=== PATIENT | male | born 1955 | race Caucasian/White ===

== ENCOUNTER → 2018-11-21 | Outpatient (CLI) | payer MEDICARE, OTHER | LOC: MHCPAIN 15:10 | DX: G89.29 Other chronic pain (principal); M47.817 Spondylosis without myelopathy or radiculopathy, lumbosacral region; M54.16 Radiculopathy, lumbar region; M53.3 Sacrococcygeal disorders, not elsewhere classified; M48.061 Spinal stenosis, lumbar region without neurogenic claudication | CPT/HCPCS: G0463 ==

== ENCOUNTER 2020-04-18 06:16 | Outpatient (CLI) | payer MEDICARE, OTHER ==
[2020-04-18] VITALS (24 sets, daily range): BP systolic 104–143; BP diastolic 52–78; PULSE 66–86; TEMP 97.9
[2020-04-18 07:32] LABS: HEMATOCRIT 40.4 % (42.0-52.0); HEMOGLOBIN 13.9 g/dl (13.5-18.0); MEAN CELL VOLUME 96 fl (80.0-100.0); MEAN CORPUSCULAR HEMOGLOBIN 33 pg (27.0-31.0); MEAN CORPUSCULAR HGB CONC 34 g/dl (33.0-37.0); MEAN PLATELET VOLUME 8.7 fl (7.4-10.4); PLATELET COUNT 166 K/mm3 (130-400); RED BLOOD COUNT 4.21 M/mm3 (4.20-5.60); REDCELL DISTRIBUTION WIDTH-CV 14.4 % (11.5-14.5)
[2020-04-18 07:50] LABS: INR 1.1 (0.8-3.0); PROTHROMBIN TIME 12.6 SECONDS (9.7-12.8)
[2020-04-18] MEDS ORDERED: ZESTRIL 5MG5 MG PO (07:50)
[2020-04-18] MEDS ORDERED: PRANDIN PO (07:51)
[2020-04-18] MEDS ORDERED: DESYREL 50MG50 MG PO (07:51)
[2020-04-18 07:53] LABS: PARTIAL THROMBOPLASTIN TIME 34.6 SECONDS (26.0-37.0)
[2020-04-18] MEDS ORDERED: LIORESAL 1010 MG/TAB PO (07:53)
[2020-04-18] MEDS ORDERED: TRIAMCINOLONE A15 G3 TP (07:54)
[2020-04-18] MEDS ORDERED: AMARYL 2MG T2 MG/TAB PO (07:54)
[2020-04-18] MEDS ORDERED: LIPITOR20 MG PO (07:56)
[2020-04-18] MEDS ORDERED: ASPIRIN 81M81 MG/TA2 PO (07:56)
[2020-04-18] MEDS ORDERED: NOVOLOG 100U100 U/M1 SQ (07:59)
--- NOTE | 2020-04-18 08:00 | NUR ---
pt to ct per bed. Pt up and onto ct table in prone position. Monitors applied and O2 on at 2l/nc.
[2020-04-18] MEDS ORDERED: HYGROTON 2525 MG/TAB PO (08:04)
[2020-04-18] MEDS ORDERED: LEVEMIR FLEX100 U/ML SQ (08:09)
[2020-04-18] MEDS ORDERED: ULTRAM 50MG TAB50 MG PO (08:09)
--- NOTE | 2020-04-18 08:09 | NUR ---
Dr Trejo into room to talk with pt.
[2020-04-18] MEDS ORDERED: COREG 3.123.125 MG/T PO (08:10)
--- NOTE | 2020-04-18 08:15 | NUR ---
Pt reports shooting pain to right hip at intervals. Specimens obtained and placed in saline in baldemar dish and taken to Dr Lopez pathologist.
--- NOTE | 2020-04-18 15:21 | NUR ---
Discharge instructions given to pt.Pt verbalizes understanding.INT removed,catheter tip intact.Pt escorted out via wheelchair by this nurse.
== END 2020-04-18 15:24 | disposition home or self-care (01) ==
LOC: COL.RAD 06:16
PROVIDERS: Internal Medicine Nephrology
DX: N17.9 Acute kidney failure, unspecified (principal)
CPT/HCPCS: 32109

== ENCOUNTER → 2023-02-26 | Outpatient (CLI) | payer OTHER, MEDICARE ==
[~2023-02-26] MED LIST: ALDACTONE 100M100 MG PO; AMARYL 2MG T2 MG/TAB PO; AMOXICILLIN 8751 TAB PO; ASPIRIN 81M81 MG/TA2 PO; ATARAX 25MG25 MG/TAB PO; COREG 3.123.125 MG/T PO; DESYREL 50MG50 MG PO; DIFLUCAN200 MG PO; ENULOSE10 GM/151 PO; HYGROTON 2525 MG/TAB PO; LACTULOSE10 GM/153 PO; LANTUS SOLOS100 U/ML SQ; LASIX 20MG TABL20 MG PO; LASIX 40MG TABL40 MG PO; LEVAQUIN 750MG750 M1 PO; LEVEMIR FLEX100 U/ML SQ; LIDODERM 5% PATC1 EA TP; LIORESAL 1010 MG/TAB PO; LIPITOR20 MG PO; MIRTAZAPINE7.5 MG PO; NOVOLOG 100U100 U/M1 SQ; NOVOLOG FLEX100 U/ML SQ; PRANDIN PO; PROTONIX 40MG T40 MG PO; ROBAXIN 50500 MG/TAB PO; SODIUM CHLORIDE; TRIAMCINOLONE A15 G3 TP; TYLENOL 500MG500 MG PO; ULTRAM 50MG TAB50 MG PO; VANCOCIN H125 MG/CAP PO; ZESTRIL 5MG5 MG PO; ZYRTEC 10MG10 MG PO
== END ==
LOC: COL.LAB 12:46
DX: K74.60 Unspecified cirrhosis of liver (principal); E11.22 Type 2 diabetes mellitus with diabetic chronic kidney disease; N18.30 Chronic kidney disease, stage 3 unspecified; R74.8 Abnormal levels of other serum enzymes; E72.20 Disorder of urea cycle metabolism, unspecified

== ENCOUNTER 2023-04-26 11:15 | Outpatient (RCR) | payer OTHER, MEDICARE ==
[~2023-04-26 11:15] MED LIST changes: +AFRIN 15 ML15 ML NS; -SODIUM CHLORIDE; -TYLENOL 500MG500 MG PO; +TYLENOL 8 HR PO
== END 2023-05-15 | disposition home or self-care (01) ==
LOC: MKS.ESL.PT
DX: G72.81 Critical illness myopathy (principal); N18.30 Chronic kidney disease, stage 3 unspecified; K74.60 Unspecified cirrhosis of liver; I48.91 Unspecified atrial fibrillation; R13.12 Dysphagia, oropharyngeal phase

== ENCOUNTER 2023-05-18 08:04 | Outpatient (RCR) | payer OTHER, MEDICARE ==
[2023-05-24] MEDS ORDERED: ELIQUIS 5MG PO (08:20)
[2023-05-24] MEDS ORDERED: PRINIVIL5 MG PO (08:21)
[2023-05-24] MEDS ORDERED: B COMPLEX #11 TA1 PO (08:26)
[2023-05-24] MEDS ORDERED: XIFAXAN550 MG PO (08:26)
[2023-05-24] MEDS ORDERED: VITAMIN D362.5 MC1 PO (08:27)
[2023-05-24] MEDS ORDERED: VITAMIN D 50,1.25 MG PO (08:28)
[2023-05-27] MEDS ORDERED: ENULOSE10 GM/151 PO (13:46)
[2023-06-10] MEDS ORDERED: PROAMATINE 5MG T5 MG PO (09:47)
[2023-06-10] MEDS ORDERED: PROTONIX 40MG T40 MG PO (09:49)
[2023-06-10] MEDS ORDERED: LASIX 40MG TABL40 MG PO (11:50)
== END 2023-06-09 14:39 ==
LOC: MKS.ESL.PT 08:04
DX: G72.81 Critical illness myopathy (principal); N18.30 Chronic kidney disease, stage 3 unspecified; K74.60 Unspecified cirrhosis of liver; I48.91 Unspecified atrial fibrillation; R13.12 Dysphagia, oropharyngeal phase

== ENCOUNTER 2023-05-23 12:56 | Inpatient (IN) | payer OTHER, MEDICARE ==
[~2023-05-23] VITALS: Ht 188 cm; Wt 113.3 kg
[2023-05-23 13:57] LABS: BASO % 0.5 % (0.0-2.0); EOS # 0.2 K/mm3 (0.0-0.7); EOS % 2.3 % (0.0-4.0); GRAN # 5.9 K/mm3 (1.4-6.5); GRAN % 70.4 % (42.2-75.2); LYMPH # 1.2 K/mm3 (1.2-3.4); LYMPH % 14.6 % (20.0-51.0); MEAN CELL VOLUME 103 fl (80.0-100.0); MEAN CORPUSCULAR HGB CONC 36 g/dl (33.0-37.0); MEAN PLATELET VOLUME 8.7 fl (7.4-10.4); MONO % 11.8 % (1.7-9.3); PLATELET COUNT 189 K/mm3 (130-400); RED BLOOD COUNT 2.57 M/mm3 (4.20-5.60); REDCELL DISTRIBUTION WIDTH-CV 16.3 % (11.5-14.5)
[2023-05-23 13:58] LABS: HEMATOCRIT 26.5 % (42.0-52.0); HEMOGLOBIN 9.4 g/dl (13.5-18.0); MEAN CORPUSCULAR HEMOGLOBIN 37 pg (27-31)
[2023-05-23 14:08] LABS: LACTIC ACID 1.7 mmol/L (0.5-2.0)
[2023-05-23 14:11] LABS: COLLECTION METHOD CLEAN CATCH
[2023-05-23 14:12] LABS: ALANINE AMINOTRANSFERASE 30 U/L (0-55); ALBUMIN 2.3 gm/dL (3.4-4.8); ALKALINE PHOSPHATASE 161 U/L (40-150); ANION GAP 12 mmol/L (7-16); AST,SGOT 50 U/L (5-34); BLOOD UREA NITROGEN 65 mg/dL (8-26); C-REACTIVE PROTEIN 12.68 mg/dL (0.00-0.50); CALCIUM 10.6 mg/dL (8.4-10.2); CARBON DIOXIDE 18 mmol/L (23-31); CHLORIDE 105 mmol/L (98-107); GLUCOSE 189 mg/dL (70-99); POTASSIUM 4.7 mmol/L (3.5-4.5); SODIUM 135 mmol/L (136-145); TOTAL PROTEIN 8.7 gm/dL (6.2-8.1)
[2023-05-23 14:19] LABS: TROPONIN-I < 0.010 ng/mL (0.00-0.033)
[2023-05-23 14:20] LABS: BILIRUBIN,TOTAL 1.7 mg/dL (0.2-1.2)
[2023-05-23 14:36] LABS: PH 5.5 (5.0-8.5); SQUAMOUS EPITHELIAL 0-2 /hpf (0-10); URINE APPEARANCE Clear (CLEAR/HAZY); URINE BACTERIA Rare /hpf (NONE SEEN); URINE BLOOD Negative (NEGATIVE); URINE COLOR Yellow (YELLOW); URINE GLUCOSE Negative (NEGATIVE); URINE KETONE Negative (NEGATIVE); URINE NITRATE Negative (NEGATIVE); URINE PROTEIN(semi-quant) Negative (NEGATIVE); URINE RBC 0-2 /hpf (0-2); URINE UROBILINOGEN 0.2 E.U/dL (0.2-1.0)
[2023-05-23] MEDS ORDERED: NS 1,000 ML IV ONE (15:00)
[2023-05-23] MEDS ORDERED: Ondansetron 4 MG/2 ML VIAL IV PRN (16:15)
[2023-05-23] MEDS ORDERED: Acetaminophen 500 MG TAB PO PRN (16:15)
[2023-05-23] MEDS ORDERED: traMADol 50 MG TAB PO ONE (16:19)
[2023-05-23] MEDS ORDERED: Acetaminophen 325 MG TAB PO ONE (16:20)
[2023-05-23] MEDS ORDERED: NS 1,000 ML IV SCH (16:30)
[2023-05-23] MEDS ORDERED: traMADol 50 MG TAB PO PRN (17:00)
[2023-05-23] MEDS ORDERED: Methocarbamol 500 MG TAB PO PRN (17:00)
--- NOTE | 2023-05-23 17:45 | NUR ---
PT ON THE FLOOR WITH PERSONAL BELONGINGS. PT TRANSFERRED TO BED WITH 2 ASSIST. PT CHANGED INTO FALL RISK ITEMS AND ORIENTED TO ROOM. PT ON THE FLOOR WITH FLUIDS RUNNING IN RIGHT UPPER ARM IV AT 125 MLS/HR, RATE CHANGED PER ORDER. PT DENIES RECENT FALL AND HAS PERSONAL WALKER IN ROOM. PT HAS DEXCOM TO LEFT UPPER ARM. PT GIVEN A WARM BLANKET AND DINNER ORDERED. PT HAS AN INCISION FROM PREVIOUS SURGERY TO LEFT UPPER ABDOMEN. SITE COVERED WITH GAUZE AND TAPE. REDNESS SURROUNDING AND NO DRAINAGE NOTED. PT DENIES NEEDS AT THIS TIME. MED REC DONE PER FLORA IN ED. BED IN LOWEST POSITION, CALL LIGHT IN REACH, BED ALARM ON
[2023-05-23 17:48] VITALS: BP 123/72; PULSE 71; TEMP 97.8
[2023-05-23 18:25] VITALS: BP_SYST 123
--- NOTE | 2023-05-23 19:14 | NUR ---
REPORT GIVEN TO TERESSA DOOLEY
[2023-05-23] MEDS ORDERED: Glucagon 1 MG VIAL IM PRN (19:15)
[2023-05-23] MEDS ORDERED: Dextrose (Glucose) 15 GM (4 x 3.75 GM) Chewable TABLET PACK PO PRN (19:15)
[2023-05-23] MEDS ORDERED: Dextrose 50% Water 25 GM/50 ML SYRINGE IV PRN (19:15)
[2023-05-23 19:32] VITALS: BP 101/54; PULSE 70; TEMP 97.3
[2023-05-23 20:15] VITALS: BP_SYST 107
[2023-05-23] MEDS ORDERED: Baclofen 10 MG TAB PO SCH (21:00)
[2023-05-23] MEDS ORDERED: Insulin Aspart (NovoLOG) SQ SCH (21:00)
[2023-05-23 23:03] VITALS: BP 107/66; PULSE 77; TEMP 97.7
[2023-05-24] VITALS (13 sets, daily range): BP systolic 101–131; BP diastolic 57–96; PULSE 77–195; TEMP 97.4–98.1
[2023-05-24] MEDS ORDERED: Heparin 5,000 UNITS/ML 1 ML VIAL SQ SCH
--- NOTE | 2023-05-24 00:32 | NUR ---
patient lying in bed, alert and oriented x4. pt denies chest pain and shortness of breath. IV in LF is patent, site is clean dry and intact with NS running at 100 ml/hr. right upper abd icision with guaze dressing is clean, dry and intact, excom on DEBRA, soft pouch on bottom of spine (pt reported due to spina bifida), generalized bruising on extremities and abd noted. pt has no further needs, questions or concerns at this time. fall precautions in place, call light within reach. will continue to monitor.
--- NOTE | 2023-05-24 06:45 | NUR ---
PATIENT SITTING UP AT EDGE OF BED DURING BEDSIDE REPORT. THIS NURSE AND WELDER/FITTER NURSE ASSISTED PATIENT TO CHAIR. PATIENT IS ALERT, ORIENTED X3 AT THIS TIME. PATIENT WAS INCONTINENT AND NEEDED QUEUING. PATIENT NOW SITTING UP IN RECLINER. FALL PREC IN PLACE. CALL LIGHT WITHIN REACH.
[2023-05-24] MEDS ORDERED: ELIQUIS 5MG PO (08:20)
[2023-05-24] MEDS ORDERED: PRINIVIL5 MG PO (08:21)
[2023-05-24] MEDS ORDERED: XIFAXAN550 MG PO (08:26)
[2023-05-24] MEDS ORDERED: B COMPLEX #11 TA1 PO (08:26)
[2023-05-24] MEDS ORDERED: VITAMIN D362.5 MC1 PO (08:27)
[2023-05-24] MEDS ORDERED: VITAMIN D 50,1.25 MG PO (08:28)
[2023-05-24] MEDS ORDERED: Lactulose Oral Soln 10 GM/15 ML CUP PO SCH ×3 (09:00→21:00)
--- NOTE | 2023-05-24 09:14 | NUR ---
THIS NURSE WAS NOTIFIED BY CHARGE NURSE THAT PATIENT WAS ON THE FLOOR. THE PATIENT APPEARED TO HAVE SLID OUT OF THE RECLINER. PATIENT IS ALERT, BUT NOT ORIENTED. NO INJURIES NOTED TO PATIENT. VSS. CHAIR ALARM ON. FALL PREC IN PLACE. WILL CONT TO MONITOR FOR CHANGES.
--- NOTE | 2023-05-24 09:42 | NUR ---
DR ALMAGUER NOTIFIED OF PATIENT'S FALL. SEE NEW ORDERS.
--- NOTE | 2023-05-24 11:03 | NUR ---
PATIENT DOWN TO CT VIA BED. PATIENT IS ALERT, BUT NOT ORIENTED.
[2023-05-24] MEDS ORDERED: Miconazole 2% Topical Powder BOTTLE TP SCH (11:09)
--- NOTE | 2023-05-24 11:16 | NUR ---
PATIENT BACK FROM CT.
[2023-05-24 13:19] LABS: BASO % 0.5 % (0.0-2.0); EOS # 0.1 K/mm3 (0.0-0.7); EOS % 1.1 % (0.0-4.0); GRAN # 5.1 K/mm3 (1.4-6.5); GRAN % 76.5 % (42.2-75.2); LYMPH # 0.7 K/mm3 (1.2-3.4); LYMPH % 11.2 % (20.0-51.0); MEAN CELL VOLUME 103 fl (80.0-100.0); MEAN CORPUSCULAR HGB CONC 35 g/dl (33.0-37.0); MEAN PLATELET VOLUME 8.8 fl (7.4-10.4); MONO # 0.7 K/mm3 (0.1-0.6); MONO % 10.4 % (1.7-9.3); PLATELET COUNT 169 K/mm3 (130-400); RED BLOOD COUNT 2.53 M/mm3 (4.20-5.60); REDCELL DISTRIBUTION WIDTH-CV 15.9 % (11.5-14.5)
[2023-05-24 13:26] LABS: MEAN CORPUSCULAR HEMOGLOBIN 36 pg (27-31)
[2023-05-24 13:32] LABS: CALCIUM 10.4 mg/dL (8.4-10.2); CREATININE, serum 2.13 mg/dL (0.72-1.25); POTASSIUM 4.6 mmol/L (3.5-4.5)
--- NOTE | 2023-05-24 16:46 | NUR ---
THIS NURSE ASSISTED PCT WITH BED CHANGE. PATIENT HAS BEEN INCONTINENT ALL SHIFT. ON THE TESTES, THERE IS A RED, BOIL-LIKE SKIN DEFECT; WITH YELLOWISH DISCHARGE NOTED. THIS NURSE CHANGED DRSG TO RIGHT UPPER QUADRANT. YELLOWISH DRAINAGE NOTED. COVERED WITH GAUZE AND MICROFOAM TAPE. PATIENT GRIMACED DURING CLEANING OF INCISION. WILL CONT TO MONITOR.
[2023-05-24 16:58] LABS: INR 1.3 (0.8-3.0); PROTHROMBIN TIME 13.9 SECONDS (9.7-12.8)
[2023-05-24 17:00] LABS: ARTERIAL BLD GAS O2 SATURATION 95.6 % (92-100); ARTERIAL BLD GAS TCO2 CT 20.6; ARTERIAL BLOOD GAS BASE EXCESS -2.9 (-2-2); ARTERIAL BLOOD GAS HCO3 19.7 meq/L (22-26); ARTERIAL BLOOD GAS pH 7.48 (7.35-7.45)
--- NOTE | 2023-05-24 18:03 | NUR ---
molding utility worker attempted to meet with patient but he fell asleep shortly after patient entered room. RUSS was notified it is possible patient may transfer to another facility. RUSS contacted patient's next of kin, , Shawnee, P# [phone]. Shawnee was able to confirm they live in [place]. PCP is Maria Fernanda Ayala at [facility] P# [phone] and he also gets his prescriptions there but for immediate needs he can get medications at [facility] in [place]. Shawnee reports patient is . Patient does not currently have a DPOA-HC but is interested in completing one once he is feeling better. DME is CPAP, walker and wheelchair. Shawnee reports patient has needed more assistance the last few weeks with ADLS. Shawnee is able to transport to appointments. Shawnee expressed she had received a call that patient may be transferring to [facility] if there is availability. Shawnee expressed she does not feel he would be able to return home without some form of rehab first. Shawnee expressed they have been to the Rehab center in [place] and would like him to go there once medically cleared. Discharge plan: TBD
--- NOTE | 2023-05-24 18:18 | NUR ---
PATIENT RESTING IN BED. PATIENT IS ASLEEP, BUT EASY TO AROUSE. PATIENT CONTINUES TO FALL ASLEEP SHORTLY AFTER AWAKENING. AMS. NS RUNNING @ 100ML/HR. PATIENT HAS BEEN INCONINENT ALL SHIFT. ANTIFUNGAL POWDER APPLIED AFTER EACH INC EPISODE. NO BOWEL MOVEMENT THIS SHIFT. FALL PREC IN PLACE. BED ALARM ON.
[2023-05-24] MEDS ORDERED: Apixaban 5 MG TAB PO SCH (21:00)
--- NOTE | 2023-05-24 22:13 | NUR ---
patient lying in bed alert and oriented x3 with intermittent confusion/forgetfullness and a delayed response time. pt denies chest pain adn shortness of breath. IV in FELIX is patent, site clean dry and intact with NS running at 100 ml/hr. RUQ incision dressed with gauze changed by NETWORK MANAGER during day shift, clean dry and intact. redness to groin, sacrum , left scrotom, under bilateral breast tissue, and under lower belly, desenex powder applied. generalized scattered bruising on extremities, soft fist sized pouch on lower back noted. pt able to have a moderate sized loose stool upon shift change, up to bedside commode x2 assist. pt has no further needs, questions or concerns. fall precautions in place, call light within reach. will continue to monitor.
[2023-05-25] VITALS (12 sets, daily range): BP systolic 100–148; BP diastolic 5–77; PULSE 73–87; TEMP 97.8–98.2
--- NOTE | 2023-05-25 08:30 | NUR ---
Patient awake, alert and oriented. C/O mild back pain, chronic. Denies shortness of breath or nausea. Telemetry in place, IVF running, on room air. Tolerated breakfast well. Denies further needs at this time. Bed in lowest position with call light within reach.
[2023-05-25] MEDS ORDERED: Lidocaine 4% Topical Patch TP SCH (09:00)
[2023-05-25 09:15] LABS: BASO % 0.3 % (0.0-2.0); EOS # 0.2 K/mm3 (0.0-0.7); EOS % 3.3 % (0.0-4.0); GRAN # 3.9 K/mm3 (1.4-6.5); GRAN % 60.7 % (42.2-75.2); LYMPH # 1.4 K/mm3 (1.2-3.4); LYMPH % 22.4 % (20.0-51.0); MEAN CELL VOLUME 106 fl (80.0-100.0); MEAN CORPUSCULAR HGB CONC 33 g/dl (33.0-37.0); MONO # 0.8 K/mm3 (0.1-0.6); PLATELET COUNT 139 K/mm3 (130-400); RED BLOOD COUNT 2.67 M/mm3 (4.20-5.60); REDCELL DISTRIBUTION WIDTH-CV 15.9 % (11.5-14.5)
[2023-05-25 09:16] LABS: ALBUMIN 2.2 gm/dL (3.4-4.8); BILIRUBIN,TOTAL 2.1 mg/dL (0.2-1.2); CALCIUM 10.4 mg/dL (8.4-10.2); CREATININE, serum 1.69 mg/dL (0.72-1.25); HEMATOCRIT 28.4 % (42.0-52.0); HEMOGLOBIN 9.3 g/dl (13.5-18.0); MAGNESIUM 1.5 mg/dL (1.6-2.6); MEAN CORPUSCULAR HEMOGLOBIN 35 pg (27-31); POTASSIUM 4.6 mmol/L (3.5-4.5); TOTAL PROTEIN 8.2 gm/dL (6.2-8.1)
[2023-05-25] MEDS ORDERED: Magnesium Sulfate 4% 50 ML IV ONE (12:45)
[2023-05-25] MEDS ORDERED: Lactulose Oral Soln 10 GM/15 ML CUP PO SCH (13:00)
--- NOTE | 2023-05-25 16:43 | NUR ---
RUSS reviewed PT/OT recommendations stating patient would benefit from post acute rehab. SW presented inpatient rehab and SNF options via Medicare.gov to patient and his . THey would like to discuss options and will follow up with older adult social work specialist. RUSS received a message patient would like IPR at the [facility]. RUSS notified IPR director. Discharge Plan: SNF or IPR
--- NOTE | 2023-05-25 18:01 | NUR ---
Patient alert throughout the day. x1 assist with rollator, steady on feet. Sat in chair throughout the day, back in bed now, bed in lowest position with call light within reach.
[2023-05-26] VITALS (11 sets, daily range): BP systolic 116–164; BP diastolic 69–75; PULSE 85–92; TEMP 97.6–98.8
--- NOTE | 2023-05-26 02:56 | NUR ---
patient lying in bed alert and oriented x4. pt denies chest pain and shortness of breath. IV in DEBRA is patent, site is clean dry and intact with NS running at 100 ml/hr. RUQ incision with gauze dressing is clean dry and intact, soft pouch on lower back from spina dabifida along with a lidocaine patch located on the lower back, generalized scattered bruising. red groin, left scrotom with redness and irritation, redness under breast tissue and lower belly noted, desenex applied to reddened areas. pt has no further needs questions or concerns at this time. fall precautions in place, call light within reach. will continue to monitor.
[2023-05-26 07:45] LABS: BASO % 0.5 % (0.0-2.0); EOS # 0.2 K/mm3 (0.0-0.7); EOS % 3.5 % (0.0-4.0); GRAN # 4.1 K/mm3 (1.4-6.5); LYMPH # 1.1 K/mm3 (1.2-3.4); LYMPH % 18.1 % (20.0-51.0); MEAN CELL VOLUME 104 fl (80.0-100.0); MEAN CORPUSCULAR HGB CONC 34 g/dl (33.0-37.0); MEAN PLATELET VOLUME 8.7 fl (7.4-10.4); MONO # 0.8 K/mm3 (0.1-0.6); MONO % 12.4 % (1.7-9.3); PLATELET COUNT 172 K/mm3 (130-400); RED BLOOD COUNT 2.31 M/mm3 (4.20-5.60); REDCELL DISTRIBUTION WIDTH-CV 15.3 % (11.5-14.5)
[2023-05-26 07:46] LABS: HEMOGLOBIN 8.2 g/dl (13.5-18.0); MEAN CORPUSCULAR HEMOGLOBIN 35 pg (27-31)
[2023-05-26 08:04] LABS: CALCIUM 10.1 mg/dL (8.4-10.2); CREATININE, serum 1.45 mg/dL (0.72-1.25); MAGNESIUM 1.6 mg/dL (1.6-2.6); POTASSIUM 4.3 mmol/L (3.5-4.5); TOTAL PROTEIN 7.4 gm/dL (6.2-8.1)
--- NOTE | 2023-05-26 09:39 | NUR ---
Initial visit; Patient thanked Keg Filler for coming in and listening. Jesse is anxious and fearful that his history with health care might be resurfacing from the same prior illnesses that caused him a 139 day hospital stay. He and Keg Filler prayed that our physicians discern his health issues quickly and that he put his jose in God and them and not take the fear and worry back on his shoulders. Jesse said he would stop playing 'yoyo' with God and give his concerns with him. Jesse said he would look forward to his next visit from Keg Filler.
--- NOTE | 2023-05-26 10:00 | NUR ---
PATIENT SITTING UP IN RECLINER CONVERSATING W NURSE. ALERT AND ORIENTED. NS RUNNING INTRAVANEOUSLY PER MAR. PATIENT DENIES ANY NEEDS OR CONCERNS AT THIS TIME.
[2023-05-26] MEDS ORDERED: Magnesium Sulfate 2 GM/50 ML IV SOLN IV ONE (10:15)
[2023-05-26] MEDS ORDERED: traZODone 50 MG TAB PO PRN (10:30)
[2023-05-26] MEDS ORDERED: Carvedilol 6.25 MG TAB PO SCH (12:45)
--- NOTE | 2023-05-26 21:00 | NUR ---
Patient resting in bed. Rates his pain at a 7/10, pain meds given. Denies any needs at this time. Assessment complete. IV in left upper arm flushes with no complicaitons. Call light and personal items in reach. Bed in low position and bed alarm on.
[2023-05-26] MEDS ORDERED: Morphine 4 MG/ML VIAL IV ONE (22:15)
[2023-05-27] VITALS (8 sets, daily range): BP systolic 103–147; BP diastolic 56–71; PULSE 79–91; TEMP 97.9–98.5
[2023-05-27] MEDS ORDERED: Melatonin 3 MG TAB PO ONE (03:00)
--- NOTE | 2023-05-27 06:00 | NUR ---
Patient resting in bed. States he was not able to get much sleep last night even after recieving trazadone and melatonin. Rates his pain at 9/10 this morning, pain meds given. Denies any other needs at this time. Called hospitalists around 2200 for patients pain and recieved new orders for 2mg morphine. [facility] hospitalists around 0300 to get something to help patient sleep. Patient stated "I take melatonin at home sometimes and it helps. I normally take 10mg." Recieved orders for 9mg melatonin for now.
[2023-05-27 06:57] LABS: BASO % 0.4 % (0.0-2.0); EOS # 0.4 K/mm3 (0.0-0.7); EOS % 4.5 % (0.0-4.0); GRAN # 5.1 K/mm3 (1.4-6.5); GRAN % 63.4 % (42.2-75.2); LYMPH # 1.5 K/mm3 (1.2-3.4); LYMPH % 19.3 % (20.0-51.0); MEAN CELL VOLUME 105 fl (80.0-100.0); MEAN CORPUSCULAR HGB CONC 34 g/dl (33.0-37.0); MEAN PLATELET VOLUME 8.8 fl (7.4-10.4); MONO # 0.9 K/mm3 (0.1-0.6); MONO % 11.8 % (1.7-9.3); PLATELET COUNT 168 K/mm3 (130-400); RED BLOOD COUNT 2.21 M/mm3 (4.20-5.60); REDCELL DISTRIBUTION WIDTH-CV 15.1 % (11.5-14.5)
[2023-05-27 06:58] LABS: HEMATOCRIT 23.1 % (42.0-52.0); HEMOGLOBIN 7.9 g/dl (13.5-18.0); MEAN CORPUSCULAR HEMOGLOBIN 36 pg (27-31)
[2023-05-27 07:16] LABS: ALBUMIN 1.9 gm/dL (3.4-4.8); BILIRUBIN,TOTAL 1.6 mg/dL (0.2-1.2); CALCIUM 9.8 mg/dL (8.4-10.2); CREATININE, serum 1.47 mg/dL (0.72-1.25); MAGNESIUM 1.5 mg/dL (1.6-2.6); POTASSIUM 4.2 mmol/L (3.5-4.5); TOTAL PROTEIN 7.3 gm/dL (6.2-8.1)
--- NOTE | 2023-05-27 07:27 | NUR ---
PATIENT AMBULATED TO BATHROOM WITH ZIPPER MACHINE OPERATOR. PATIENT IS ALERT AND ORIENTED, SITTING UP IN RECLINER. PATIENT STATES HE DID NOT SLEEP WELL LAST NIGHT. PATIENT DENIES PAIN OR DISCOMFORT AT THIS TIME. CALL LIGHT WITHIN REACH. WILL CONT TO MONITOR.
[2023-05-27] MEDS ORDERED: Spironolactone 25 MG TAB PO SCH (09:00)
[2023-05-27] MEDS ORDERED: Furosemide 40 MG TAB PO SCH (09:00)
[2023-05-27] MEDS ORDERED: Lisinopril 5 MG TAB PO SCH (09:00)
[2023-05-27] MEDS ORDERED: Magnesium Sulfate 2 GM/50 ML IV SOLN IV ONE (10:15)
[2023-05-27] MEDS ORDERED: ENULOSE10 GM/151 PO (13:46)
--- NOTE | 2023-05-27 13:51 | NUR ---
LYNN FROM [facility] INFORMED THIS NURSE OF PATIENT'S ACCEPTANCE TO IPR. THIS NURSE CALLED EDITH DENNIS FOR DISCHARGE ORDERS.
[2023-05-27] MEDS ORDERED: Lactulose Oral Soln 10 GM/15 ML CUP PO SCH (14:00)
--- NOTE | 2023-05-27 14:47 | NUR ---
PATIENT ESCORTED TO [facility] AT 1445. ALL BELONGINGS WITH PATIENT. REPORT GIVEN TO ANT GANNON.
--- NOTE | 2023-05-30 16:33 | NUR ---
On 05/27/23, patient was accepted to the IPR unit. Patient transferred to the IPR floor.
== END 2023-05-27 14:45 | DRG 684 ==
LOC: COL.ER 12:56 → MEDICAL 15:28
PROVIDERS: Hospitalist; Nurse Practitioner; ADMIT Internal Medicine
DX: N17.9 Acute kidney failure, unspecified (principal); N18.30 Chronic kidney disease, stage 3 unspecified; K76.82 Hepatic encephalopathy; K75.81 Nonalcoholic steatohepatitis (NASH); E87.5 Hyperkalemia; E83.52 Hypercalcemia; D64.9 Anemia, unspecified; G89.29 Other chronic pain; E11.9 Type 2 diabetes mellitus without complications; Z79.4 Long term (current) use of insulin; I10 Essential (primary) hypertension; E83.42 Hypomagnesemia; G47.00 Insomnia, unspecified; R53.81 Other malaise
CPT/HCPCS: J1644; J1815; J2270; J3475; J7030

== ENCOUNTER 2023-05-27 13:33 | Inpatient (IN) | payer OTHER, MEDICARE ==
[~2023-05-27] VITALS: Ht 188 cm; Wt 113.6 kg
[~2023-05-27 13:33] MED LIST changes: +B COMPLEX #11 TA1 PO; +ELIQUIS 5MG PO; +PRINIVIL5 MG PO; +VITAMIN D 50,1.25 MG PO; +VITAMIN D362.5 MC1 PO; +XIFAXAN550 MG PO
[2023-05-27] MEDS ORDERED: ENULOSE10 GM/151 PO (13:46)
[2023-05-27 15:02] VITALS: BP 122/70; PULSE 82; TEMP 98.1
--- NOTE | 2023-05-27 15:06 | NUR ---
PT TO ROOM 335 PER WHEEL CHAIR WITH REPORT FROM ALVARO ALLEN. PT IS A/O X4, LUNGS CTA, BOWEL SOUNDS ACTIVE. SKIN ASSESSMENTS COMPLETE. DIFFUSE BRUSING AND ECCYMOSIS BILATERAL UPPPER EXT. IV TO LEFT SHOULDER PLACED ON 06/06/23. PT SITTING UP IN RECLINER WITH CHAIR ALARM ON. ORIENTED PT TO UNIT AND ROOM. QUESTIONS SOLICITED AND ANSWERED. PT REPORTS BM X6 ON 05/26/23.
[2023-05-27 17:01] VITALS: BP_SYST 122
[2023-05-27 17:15] VITALS: BP 130/74; PULSE 82; TEMP 98.2
[2023-05-27 21:00] VITALS: BP_SYST 130
--- NOTE | 2023-05-27 21:00 | NUR ---
Assissted patient to bathroom and back to bed with no complicaitons. Aquacell applied to reddened area on lower back for precaution. Assessment complete. IV in left upper arm flushes easily with no complicaitons. Lotion applied to lower extremities. Rates his pain an 8/10, PRN pain meds given. Denies any other needs at this time. Call light and personal items in reach. Bed in low position and bed alarm on.
[2023-05-28 05:37] VITALS: BP 97/57; PULSE 78; TEMP 97.8
--- NOTE | 2023-05-28 06:25 | NUR ---
Patient resting in bed. Rates his pain an 8/10, PRN pain meds given. No changes overnight. Call light and personal items in reach. Bed in low position and bed alarm on.
[2023-05-28 07:00] VITALS: BP_SYST 97
--- NOTE | 2023-05-28 15:52 | NUR ---
Sourcing Coordinator met with patient to complete initial intake. Patient lives in [place] with his , Martinez (ph#[phone]) and sees Dr. Maria Fernanda Ayala at [facility] for primary care and medications. Patient gets his medications either at [facility] or at [facility] in [place]. Patient has a rollator at bedside. Patient advised he is not driving at this time and relies on Martinez for transportation. Patient discussed some issues securing a wheelchair and will have Martinez bring in paperwork for this sometime next week. Patient does not have DPOA-HC, but may want to complete one while here.
[2023-05-28 17:10] VITALS: BP 100/62; PULSE 78; TEMP 97.6
[2023-05-28 19:00] VITALS: BP_SYST 100
--- NOTE | 2023-05-28 21:17 | NUR ---
PT IN CHAIR AT BEDSIDE, WATCHING FOOTBALL. IS ALERT AND ORIENTED X4. HS MEDS GIVEN. HAS INT TO DEBRA. MEPILEX AND LIDODERM PATCH TO BACK. DIFFUSE BRUISING TO BILATERAL UPPER ARMS WITH MILD EXCORIATION UNDER BREASTS AND GROIN. HAS BILATERAL LOWER LEG SWELLING WITH PURPLE DISCOLORATION. RT UPPER ABD WITH HEALING WOUND S/P INCISION FOR OPEN CHOLECYSTECTOMY, TELFA DRSG CHANGED, OPEN AREA SIZE OF PEA.
--- NOTE | 2023-05-28 23:08 | NUR ---
APPLIED DESINEX POWDER TO GROIN AND BENEATH BREASTS. MEDICATED WITH TRAMADOL 50MG PO FOR BACK PAIN.
[2023-05-29 06:12] VITALS: BP 94/57; PULSE 73; TEMP 98.3
[2023-05-29 07:00] VITALS: BP_SYST 94
--- NOTE | 2023-05-29 07:54 | NUR ---
PATIENT RESTING IN BED WITH EYES CLOSED. ASSESSMENT COMPLETED. PATIENT STATES HE IS HAVING PAIN TO LOWER BACK AND COCCYX. THIS NURSE ASKED IF PATIENT WOULD LIKE TO BE REPOSITIONED TO RELIEVE PRESSURE. PATIENT STATED HE CANNOT SLEEP ON SIDE. PATIENT STATES PAIN IS 4/10. MIPLEX DRSG TO LOWER BACK. WILL APPLY LIDOCAINE PATCH PER MAR FOR PAIN. DENIES OTHER NEEDS OR CONCERNS AT THIS TIME.
--- NOTE | 2023-05-29 13:15 | NUR ---
PATIENT SITTING UP IN CHAIR. COMPLAINING OF LOWER BACK PAIN. 12/23. PATIENT REQUESTING PAIN MEDICAITON. PANDA ADMINISTERED PER JUL. AT BEDSIDE. WILL MONITOR.
[2023-05-29 17:10] VITALS: BP 111/68; PULSE 76; TEMP 98.1
[2023-05-29 18:52] VITALS: BP_SYST 111
--- NOTE | 2023-05-29 18:52 | NUR ---
RECEIVED CHANGE OF SHIFT REPORT FROM DAY SHIFT NURSE.
--- NOTE | 2023-05-30 02:41 | NUR ---
PATIENT RESTING IN BED WITH EYES CLOSED, BREATHING EVEN AND NONLABORED. EXIT ALARM ON, CALL LIGHT IN REACH.
[2023-05-30 05:35] VITALS: BP 105/63; PULSE 73; TEMP 98.1
[2023-05-30 07:02] VITALS: BP_SYST 105
--- NOTE | 2023-05-30 07:03 | NUR ---
Shift report received from night RN. No events reported overnight. Pt sleeping supine in bed w/ HOB elevated to approx 30 degrees. Resps are even & unlabored. Call light in reach. Fall precautions in place.
--- NOTE | 2023-05-30 07:03 | NUR ---
Change of shift report given to day shift nurseKaren.
--- NOTE | 2023-05-30 13:04 | NUR ---
Pt ambulating off unit w/ PT.
--- NOTE | 2023-05-30 13:38 | NUR ---
Pt back in room after working w/ PT. Pt reporting back pain at 810. Tramadol given per PRN order. Has Lidocaine patch on lower back. Pt denies other needs at this time. Call light in reach. Fall precautions in place.
--- NOTE | 2023-05-30 14:27 | NUR ---
Admission QIM scores were reviewed by the team. Code of 6 chosen for eating was determined by team discussion to be the most usual performance before interventions for this patient during the assessment period. Code of 4 chosen for oral hygiene was determined by team discussion to be the most usual performance before interventions for this patient during the assessment period. Code of 3 chosen for toileting hygiene was determined by team discussion to be the most usual performance for this patient during the discharge assessment period. Code of 3 chosen for toilet transfers was determined by team discussion to be the most usual performance for this patient during the discharge assessment period.--Beryl Kennedy, PD
--- NOTE | 2023-05-30 16:12 | NUR ---
Has lack of transportation kept you from medical appts, meetings, work, or from getting things needed for daily living? no How often do you feel lonely or isolated from those around you? rarely Over the past 5 days, how much of the time has pain made it hard for you to sleep? almost constantly Over the past 5 days, how often have you limited your participation in therapy due to pain? rarely/not at all Over the past 5 days, how often have you limited your day-to-day activities because of pain? frequently Have you had 2 or more falls in the past year or any fall with an injury? no Did you have major surgery during the 100 days prior to admission? no
--- NOTE | 2023-05-30 16:59 | NUR ---
Pt sitting up in recliner after visiting w/ & son. He denies the need for pain medication at this time & reports that he doesn't have back pain at rest. Pt denies any needs at this time. Call light in reach. Fall precautions in place.
[2023-05-30 18:00] VITALS: BP 106/64; PULSE 73; TEMP 97.3
[2023-05-30 19:23] VITALS: BP_SYST 106
--- NOTE | 2023-05-30 21:15 | NUR ---
PT A&O X4 SITTING UP IN CHAIR WATCHING TV. C/O BACK PAIN 11/22, GIVEN PRN OXY PER PT REQUEST. DSG TO ABD WITH BROWN DRAINAGE, DSG CHANGED. PT AMBULATED TO RESTROOM WITH STANDBY ASSIST & STEADY GAIT. PT NOW BACK IN BED WITH FALL PRECAUTIONS IN PLACE & CALL LIGHT IN REACH. DENYING FURTHER NEEDS.
--- NOTE | 2023-05-31 01:30 | NUR ---
PT RESTING IN BED WITH EVEN & UNLABORED RESP. CALL LIGHT IN REACH & FALL PRECAUTIONS IN PLACE.
[2023-05-31 05:06] VITALS: BP 104/52; PULSE 77; TEMP 97.7
--- NOTE | 2023-05-31 05:26 | NUR ---
Pt rating shoulder pain this morning 11/22, given prn oxycodone per pt request. Pt denying other needs. Call light in reach & fall precautions in place.
[2023-05-31 17:18] VITALS: BP 104/65; PULSE 77; TEMP 97.9
--- NOTE | 2023-05-31 18:46 | NUR ---
RECEIVED CHANGE OF SHIFT REPORT FROM DAY SHIFT NURSE.
[2023-05-31 19:00] VITALS: BP_SYST 104
[2023-06-01] VITALS (7 sets, daily range): BP systolic 93–114; BP diastolic 45–62; PULSE 72–79; TEMP 97.7–98.4
[2023-06-01 07:28] LABS: BASO % 0.2 % (0.0-2.0); EOS # 0.3 K/mm3 (0.0-0.7); EOS % 3.1 % (0.0-4.0); GRAN # 7.1 K/mm3 (1.4-6.5); LYMPH # 1.2 K/mm3 (1.2-3.4); LYMPH % 12.5 % (20.0-51.0); MEAN CELL VOLUME 102 fl (80.0-100.0); MEAN CORPUSCULAR HGB CONC 34 g/dl (33.0-37.0); MONO # 1.1 K/mm3 (0.1-0.6); MONO % 11.5 % (1.7-9.3); PLATELET COUNT 192 K/mm3 (130-400); RED BLOOD COUNT 2.15 M/mm3 (4.20-5.60); REDCELL DISTRIBUTION WIDTH-CV 15.8 % (11.5-14.5)
--- NOTE | 2023-06-01 07:31 | NUR ---
RECIEVED REPORT FROM PRIVACY MANAGER JOHN GANNON.
[2023-06-01 07:32] LABS: HEMATOCRIT 21.9 % (42.0-52.0); HEMOGLOBIN 7.5 g/dl (13.5-18.0); MEAN CORPUSCULAR HEMOGLOBIN 35 pg (27-31)
--- NOTE | 2023-06-01 07:36 | NUR ---
CHANGE OF SHIFT REPORT GIVEN TO DAY SHIFT NURSEMINAL.
[2023-06-01 07:38] LABS: CREATININE, serum 2.29 mg/dL (0.72-1.25); POTASSIUM 5.7 mmol/L (3.5-4.5)
--- NOTE | 2023-06-01 10:30 | NUR ---
PT ALERT AND ORIENTED. VSS, C/O 12/23 PAIN IN LOWER BACK. MEDICATED PER EMAR, SHIFT ASSESSMENT COMPLETE. EVEN UNLABORED RESPR. INT TO L UPPER ARM INFILTRATED, WILL BE REPLACING. IS IN SEVERE PAIN IN LOWER BACK. DENIES ANY FURTHER NEED AT THIS TIME. CALL LIGHT WITHIN REACH, CHAIR ALARM SET.
[2023-06-01 13:41] LABS: CALCIUM 10.6 mg/dL (8.4-10.2); CREATININE, serum 2.57 mg/dL (0.72-1.25)
[2023-06-01 13:46] LABS: POTASSIUM 5.9 mmol/L (3.5-4.5)
--- NOTE | 2023-06-01 16:12 | NUR ---
Solar Sales Associate met with patient to provide team conference notes. Patient advised he is really struggling with back pain. SW advised she was going to contact patient's to schedule a family meeting. SW attempted to contact Martinez and left a message.
[2023-06-01 17:11] LABS: CALCIUM 10.5 mg/dL (8.4-10.2); CREATININE, serum 2.55 mg/dL (0.72-1.25)
[2023-06-01 17:15] LABS: POTASSIUM 5.9 mmol/L (3.5-4.5)
--- NOTE | 2023-06-01 17:39 | NUR ---
PROVIDER DR. YORK NOTIFIED OF CRITICAL POTASSIUM OF 5.9 AND HYPOTENSION IN PT. PROVIDER ORDERED IV FLUID RATE INCREASE TO 250/ML HR, TELEMETRY MONITORING AND AN EKG. PROVIEDER TO BE NOTIFIED WHEN EKG COMPLETE.
--- NOTE | 2023-06-01 17:42 | NUR ---
PROVIDER NOTIFIED THAT EKG COMPLETE.
--- NOTE | 2023-06-01 19:21 | NUR ---
report received from filippo mejia. pt resting in bed with eyes closed, equal and unlabored breaths noted. pt reports prn medication given by previous shift was effective. bp rechecked and has improved. pt still on ivf to ferdinand iv. bed alarm on. call light in reach. all needs met at this time.
[2023-06-01 21:31] LABS: CALCIUM 9.9 mg/dL (8.4-10.2); CREATININE, serum 2.48 mg/dL (0.72-1.25); POTASSIUM 5.4 mmol/L (3.5-4.5)
--- NOTE | 2023-06-01 21:38 | NUR ---
shift assessment complete, see documentation. pt tolerated hs meds well. powder applied to excoriation areas (groin, panus, breasts) and pt denied pain or discomfort. ivf continue running to [facility] iv without issue. pt now resting in bed and talking to on the phone. bed alarm on. call light in reach. all needs met at this time.
--- NOTE | 2023-06-01 23:37 | NUR ---
julius peters updated on CO2 level. pt asymptomatic. no new orders at this time.
[2023-06-02] VITALS (11 sets, daily range): BP systolic 96–138; BP diastolic 54–73; PULSE 82–95; TEMP 97.4–98.8
[2023-06-02 01:35] LABS: CALCIUM 9.6 mg/dL (8.4-10.2); CREATININE, serum 2.29 mg/dL (0.72-1.25)
[2023-06-02 01:40] LABS: POTASSIUM 5.8 mmol/L (3.5-4.5)
--- NOTE | 2023-06-02 01:55 | NUR ---
critical lab value of 5.8 potassium. updated editor at large lorraine. no new orders at this time.
--- NOTE | 2023-06-02 02:20 | NUR ---
new order for iv insulin, iv dextrose, and iv sodium bicarb. pt tolerated administration well. call light in reach. all needs met at this time.
--- NOTE | 2023-06-02 03:19 | NUR ---
pt reported hitting his hand on the bathroom door when walking out. small skin tear to the left hand between the ring and middle finger. gauze applied. pt denies pain.
[2023-06-02 06:41] LABS: CALCIUM 9.4 mg/dL (8.4-10.2); CREATININE, serum 2.22 mg/dL (0.72-1.25); POTASSIUM 5.4 mmol/L (3.5-4.5)
--- NOTE | 2023-06-02 06:55 | NUR ---
Shift report received from night RN. Pt had critical lab values for K+ & CO2 overnight treated w/ insulin, dextrose, & sodium bicarb. Pt awake & lying supine in bed w/ HOB elevated approx 30 degr. NS continues to infuse as ordered to IV site R Upper Arm. Pain/discomfort denied. Call light in reach. Fall precautions in place.
--- NOTE | 2023-06-02 08:32 | NUR ---
Pt sitting up in recliner eating breakfast independently. Denies pain/discomfort at this time. He reports not sleeping well overnight. BP checked approx 30 minutes ago: 96/54, HR 93. Pt denies feeling dizzy or lightheaded. PT at the bedside. Pt has his call light in reach. Chair alarm on.
--- NOTE | 2023-06-02 08:46 | NUR ---
Pt self-ambulating in wheelchair off unit w/ PT
[2023-06-02 09:27] LABS: BASO % 0.2 % (0.0-2.0); EOS # 0.1 K/mm3 (0.0-0.7); EOS % 1.1 % (0.0-4.0); GRAN # 7.5 K/mm3 (1.4-6.5); GRAN % 80.3 % (42.2-75.2); LYMPH # 0.8 K/mm3 (1.2-3.4); LYMPH % 8.9 % (20.0-51.0); MEAN CELL VOLUME 102 fl (80.0-100.0); MEAN CORPUSCULAR HGB CONC 35 g/dl (33.0-37.0); MEAN PLATELET VOLUME 9.1 fl (7.4-10.4); MONO # 0.8 K/mm3 (0.1-0.6); MONO % 8.8 % (1.7-9.3); PLATELET COUNT 173 K/mm3 (130-400); RED BLOOD COUNT 1.97 M/mm3 (4.20-5.60); REDCELL DISTRIBUTION WIDTH-CV 15.9 % (11.5-14.5)
[2023-06-02 09:36] LABS: MEAN CORPUSCULAR HEMOGLOBIN 36 pg (27-31)
--- NOTE | 2023-06-02 10:09 | NUR ---
Keypuncher contacted patient's , Martinez to schedule family meeting for tomorrow at 0930. SW updated May that there is no discharge date set at this time.
--- NOTE | 2023-06-02 10:57 | NUR ---
Pt off unit for Group Therapy.
--- NOTE | 2023-06-02 11:40 | NUR ---
Pt taken off unit via wheelchair for back XR.
--- NOTE | 2023-06-02 11:56 | NUR ---
Pt back from Radiology. Pt given Oxycodone per PRN order prior to Xray. He reports his back pain is getting better. Denies other needs. Call light in reach. Chair alarm on.
[2023-06-02 13:59] LABS: CALCIUM 9.7 mg/dL (8.4-10.2); CREATININE, serum 2.3 mg/dL (0.72-1.25); POTASSIUM 5.7 mmol/L (3.5-4.5)
--- NOTE | 2023-06-02 14:59 | NUR ---
K+ 5.4 this morning, Lokelma given per order. K+ rechecked 5.7. Hospitalist notified.
--- NOTE | 2023-06-02 15:42 | NUR ---
Lokelma given per order
--- NOTE | 2023-06-02 17:43 | NUR ---
Pt sitting up in recliner after ambulating to the bathroom. Pt had a large, loose BM. Pt eating dinner w/ . Lab at the bedside for type & cross. Pt denies the need for pain medication at this time. Denies other needs. Call light in reach. Chair alarm on.
[2023-06-03] VITALS (11 sets, daily range): BP systolic 104–149; BP diastolic 60–73; PULSE 76–91; TEMP 98–98.3
[2023-06-03 03:45] LABS: HEMATOCRIT 21.8 % (42.0-52.0); HEMOGLOBIN 7.7 g/dl (13.5-18.0)
--- NOTE | 2023-06-03 05:00 | NUR ---
ASSESSMENT COMPLETE FOR STRATEGIC ACCOUNT EXECUTIVE. PT DENIED GENERAL PAIN, CHEST PAIN, PALPITATIONS, SOB, N,V,D OR DIZZINESS. ONE UNIT OF BLOOD GIVEN WITH NO ISSUES. FALL PRECAUTIONS IN PLACE. BED ALARM ON. CALL LIGHT WITHIN REACH.
--- NOTE | 2023-06-03 07:10 | NUR ---
Shift report received from night RN. Pt sleeping supine in bed w/ HOB elevated to 30 degrees. Resps are even & unlabored. One unit PRBC given during noc shift. Post transfusion Hbg 7.7. Pt has call light in reach. Fall precautions in place.
--- NOTE | 2023-06-03 07:34 | NUR ---
Pt reporting mild back pain this morning. Pain medications declined at this time. Pt has PT in approx 1 hr & would like to go via wheelchair via ambulating this morning. Will communicate pt wishes to PT.
[2023-06-03 08:19] LABS: CALCIUM 9.2 mg/dL (8.4-10.2); CREATININE, serum 1.78 mg/dL (0.72-1.25)
--- NOTE | 2023-06-03 09:16 | NUR ---
Pt back in room after PT. IV site R upper arm was accidentally pulled out. Dr. Guillen aware & will determine the need for reinsertion of peripheral IV vs. PICC line.
--- NOTE | 2023-06-03 12:26 | NUR ---
Pt sitting up in recliner to eat lunch. He report relief of his back pain & denies the need for any pain interventions at this time. Other needs denied. Call light in reach. Chair alarm on.
--- NOTE | 2023-06-03 15:01 | NUR ---
Drug Abuse Program Coordinator attended family meeting which included patient's , Martinez at bedside. Beryl, [facility] Director opened the meeting followed up by report from IPR Physician, PT, OT, and ST. Patient is having multiple medical issues that are affecting his ability to progress with therapy. Patient will have continued medical work up and will continue to be reassessed for discharging back to acute vs staying in rehab. RUSS contacted [facility] to inquire about obtaining new tubing for patient's CPAP. Timur at [facility] advised they have the needed script but cannot despense the tubing while patient is in acute rehab. RUSS spoke with [facility] who advised they can get patient the hospital CPAP or he can continue to use his CPAP. RUSS updated RN who will discuss options with patient.
--- NOTE | 2023-06-03 18:07 | NUR ---
22G IV placed to Rt. upper arm by TERESSA Dexter.
--- NOTE | 2023-06-03 20:45 | NUR ---
PT A&O X4 SITTING UP IN CHAIR. VSS. SHIFT ASSESSMENT & HS MEDS COMPLETED. PT DENYING PAIN, DIZZINESS, OR SOB. INT TO LEFT UPPER ARM PATENT. AMBULATED TO RESTROOM WITH STANDBY ASSIST. PT BACK IN BED WITH FALL PRECAUTIONS IN PLACE & CALL LIGHT IN REACH. DENYING FURTHER NEEDS.
[2023-06-04] VITALS (8 sets, daily range): BP systolic 128–171; BP diastolic 58–79; PULSE 73–83; TEMP 97.5–98.3
--- NOTE | 2023-06-04 04:11 | NUR ---
PT RESTING IN BED WITH EVEN & UNLABORED RESP. CALL LIGHT IN REACH
--- NOTE | 2023-06-04 05:51 | NUR ---
PT SITTING UP IN CHAIR THIS AM. STATES PAIN IN HIS SHOULDER IS 6/10, GIVEN PRN OXY PER PT REQUEST. CALL LIGHT IN REACH & DENYING FURTHER NEEDS AT THIS TIME.
--- NOTE | 2023-06-04 07:22 | NUR ---
RECIEVED REPORT FROM TERESSA LIU.
--- NOTE | 2023-06-04 11:07 | NUR ---
PT ALERT AND ORIENTED, VSS. UP IN RECLINER CHAIR. SHIFT ASSESSMENT COMPLETE,PAIN RATED 5/10 AT THIS TIME.MEDICATED PER EMAR. DRESSING TO RIGHT ABD CHANGED,CDI. INT TO LEFT UPPER ARM FLUSHES WELL. DENIES NEED FOR ANYTHING FURTHER AT THIS TIME. CALL LIGHT WITHIN REACH, CHAIR ALARM INTACT.
[2023-06-05] VITALS (8 sets, daily range): BP systolic 135–163; BP diastolic 57–75; PULSE 68–79; TEMP 97.6–98.6
--- NOTE | 2023-06-05 08:00 | NUR ---
Patient sleeping in bed, easily awakened with verbal command. A&Ox3. VSS. IV CDI. Denies pain and discomfort, reports being tired. Call light within reach. Bed alarm on
[2023-06-05 08:01] LABS: CALCIUM 9.9 mg/dL (8.4-10.2); CREATININE, serum 1.32 mg/dL (0.72-1.25)
[2023-06-06 03:35] VITALS: BP 137/62; PULSE 71; TEMP 97.5
[2023-06-06 06:39] VITALS: BP_SYST 137
--- NOTE | 2023-06-06 06:41 | NUR ---
Shift report received from night RN. Per report, pt did not sleep overnight despite receiving sleep medications. No other events reported overnight. Pt sleeping supine in bed w/ even & unlabored resps. Call light in reach. Fall precautions in place.
[2023-06-06 07:45] LABS: CALCIUM 10.2 mg/dL (8.4-10.2); CREATININE, serum 1.43 mg/dL (0.72-1.25); POTASSIUM 4.8 mmol/L (3.5-4.5)
[2023-06-06 07:49] VITALS: BP 147/71; PULSE 66; TEMP 97.5
--- NOTE | 2023-06-06 12:24 | NUR ---
Pt sitting up in the recliner waiting for lunch. Minor nosebleed noted. Bleeding lasted approx 1 min & then stopped after pressure applied. Pt reports he gets occasaional nosebleeds when the air is dry. Dr. Guillen aware. See EMAR for changes.
--- NOTE | 2023-06-06 14:08 | NUR ---
Supervisor Parachute Manufacturing met with patient to check in after the weekend. Patient stated he is feeling better and talked about watching the [employer] game last night.
--- NOTE | 2023-06-06 15:56 | NUR ---
Pt sitting up in recliner watching tv. Pt reporting mild back pain. Declines pain medication at this time & would like to "save it for bedtime". Encouraged pt to notify nurse if he changes his mind. Other needs denied. Call light in reach. Chair alarm on.
[2023-06-06 17:08] VITALS: BP 133/75; PULSE 81; TEMP 97.6
--- NOTE | 2023-06-06 17:15 | NUR ---
Skin tear to Lt. upper arm occurred when RN removing tape from INT. Steristrips, xeroform, tegaderm applied. Will continue to monitor.
[2023-06-06 19:00] VITALS: BP_SYST 133
--- NOTE | 2023-06-06 20:00 | NUR ---
PT STABLE ON ROUNDS. RESPIRATIONS EVEN AND UNLABORED. NO SIGN OF DISTRESS AT THIS TIME. DRESSING TO RIGHT UPPER ABD CHANGED WITH GAUZE AND PAPER TAPE.
--- NOTE | 2023-06-06 20:37 | NUR ---
PT SITTING IN CHAIR. STATES HE IS CONCERNED ABOUT GETTING A GOOD NIGHTS REST. DISCUSSED PAIN AND ANXIETY MEDICATIONS WITH PT. STABLE AT THIS TIME. NO SIGN OF DISTRESS AT THIS TIME.
[2023-06-07 05:40] VITALS: BP 148/74; PULSE 85; TEMP 97.7
--- NOTE | 2023-06-07 06:55 | NUR ---
bedside shift report received from TERESSA Asher
[2023-06-07 06:58] VITALS: BP_SYST 148
[2023-06-07 07:33] LABS: CALCIUM 10.1 mg/dL (8.4-10.2); CREATININE, serum 1.4 mg/dL (0.72-1.25); POTASSIUM 4.8 mmol/L (3.5-4.5)
--- NOTE | 2023-06-07 07:45 | NUR ---
sitting up in bed and has had breakfast and tolerated well, full assessment completed, see interventions for further info, has diffuse bruising to BUE, has redness under breasts, pannus, groin and scrotum area,
--- NOTE | 2023-06-07 08:10 | NUR ---
up to bathroom with assistance of GUEST HISTORY CLERK, am care provided, then desenex applied to pannus, scrotum, groin and under breasts, dressed and ready for therapy
--- NOTE | 2023-06-07 08:30 | NUR ---
speech therapy in to work with patient,
--- NOTE | 2023-06-07 09:20 | NUR ---
sitting up in recliner and denies needs
--- NOTE | 2023-06-07 10:49 | NUR ---
out of room with therapy for group therapy
--- NOTE | 2023-06-07 11:45 | NUR ---
returned from therapy and c/o pain 12/23, medicated with roxicodone 5mg po
--- NOTE | 2023-06-07 13:12 | NUR ---
ambulating out in james and working with physical therapy
--- NOTE | 2023-06-07 14:54 | NUR ---
has skin tear to right forearm and dressing is saturated nd coming off, redressed with non adherant dressing wrapped with small amount kerlix and then with amber wrap
--- NOTE | 2023-06-07 16:17 | NUR ---
resting in chair and denies needs or c/os
[2023-06-07 17:58] VITALS: BP 128/73; PULSE 90; TEMP 97.5
--- NOTE | 2023-06-07 18:23 | NUR ---
called nurse to room, was looking at dressing to right forearm and another skin tear occured, dressed with non adhearant dressing and wrapped with amber wrap
--- NOTE | 2023-06-07 18:55 | NUR ---
bedside shift report given to TERESSA Billings
[2023-06-07 19:00] VITALS: BP_SYST 128
--- NOTE | 2023-06-07 19:46 | NUR ---
report received from carol mejia. pt resting in chair with at bedside. pt denies pain. chair alarm on. call light in reach. all needs met at this time.
--- NOTE | 2023-06-07 21:18 | NUR ---
shift assessment complete, see documentation. pt denies pain. pt tolerated hs meds well. bed alarm on. call light in reach. all needs met at this time.
[2023-06-08 06:08] VITALS: BP 143/73; PULSE 79; TEMP 97.5
[2023-06-08 07:00] VITALS: BP_SYST 143
--- NOTE | 2023-06-08 14:11 | NUR ---
Roller Varnisher met with patient to review and give copy of team conference notes. SW discussed discharge date of Tuesday and patient is happy about this. Patient mentioned that he is looking forward to watching the [employer] game on Tuesday in his home. SW discussed recommendation for outpatient PT and ST, which patient would like to do at [place] [facility] [place] [facility]. SW contacted patient's , Martinez to provide the above update. Martinez is happy with discharge date and will be here to picker tender helper patient Tuesday, sometimes after 1100.
[2023-06-08 17:14] VITALS: BP 110/70; PULSE 87; TEMP 98.3
[2023-06-08 18:30] VITALS: BP_SYST 110
--- NOTE | 2023-06-08 20:00 | NUR ---
PT SITTING IN RECLINER. A&OX4. HAVING MID BACK PAIN. SEE COMPLETED SHIFT ASSESSMENT. SEE MAR FOR SCHEDULED TRAMADOL. UP OUT OF CHAIR WITH ROLLING WALKER W/SBA. AMB TO OTHER SIDE OF BED. PT ABLE TO CHANGE CLOTHING PER SELF. USES URINAL. STAFF EMPTIES. PT ABLE TO LIFT LEGS INTO BED. SEE SKIN ASSESSMENT. CALL LIGHT IN REACH. BED ALARM SET. RT NOTIFIED - PT READY FOR CPAP.
--- NOTE | 2023-06-09 06:00 | NUR ---
PT AWAKE. DENIES NEEDS. PT RELATED SLEPT WITH CPAP HALF THE NIGHT. NO NEEDS AT THIS TIME.
[2023-06-09 06:03] VITALS: BP 128/71; PULSE 81; TEMP 98.1
--- NOTE | 2023-06-09 06:45 | NUR ---
BEDSIDE SHIFT REPORT GIVEN TO ROSSANA AVILES RN. NO QUESTIONS.
--- NOTE | 2023-06-09 06:45 | NUR ---
BEDSIDE SHIFT REPORT GIVEN TO ROSSANA SHOEMAKER RN. NO QUESTIONS.
[2023-06-09 07:09] VITALS: BP_SYST 128
--- NOTE | 2023-06-09 12:00 | NUR ---
Will lack of transportation kept you from medical appts, meetings, work, or from getting things needed for daily living? no How often do you feel lonely or isolated from those around you? rarely Over the past 5 days, how much of the time has pain made it hard for you to sleep? occasionally Over the past 5 days, how often have you limited your participation in therapy due to pain? occasionally Over the past 5 days, how often have you limited your day-to-day activities because of pain? occasionally
[2023-06-09 13:55] LABS: BASO % 0.3 % (0.0-2.0); EOS # 0.3 K/mm3 (0.0-0.7); EOS % 3.2 % (0.0-4.0); GRAN # 7.7 K/mm3 (1.4-6.5); GRAN % 71.6 % (42.2-75.2); HEMATOCRIT 28.5 % (42.0-52.0); LYMPH # 1.5 K/mm3 (1.2-3.4); MEAN CELL VOLUME 102 fl (80.0-100.0); MEAN CORPUSCULAR HEMOGLOBIN 36 pg (27-31); MEAN CORPUSCULAR HGB CONC 35 g/dl (33.0-37.0); MEAN PLATELET VOLUME 8.5 fl (7.4-10.4); MONO % 9.6 % (1.7-9.3); PLATELET COUNT 168 K/mm3 (130-400); RED BLOOD COUNT 2.79 M/mm3 (4.20-5.60); REDCELL DISTRIBUTION WIDTH-CV 16.5 % (11.5-14.5)
[2023-06-09 14:20] LABS: CALCIUM 10.2 mg/dL (8.4-10.2); CREATININE, serum 1.5 mg/dL (0.72-1.25); POTASSIUM 4.7 mmol/L (3.5-4.5)
--- NOTE | 2023-06-09 15:39 | NUR ---
Repair Manager met with patient to present and review IM form. Patient verbalized understanding and provided signature. SW placed form in chart and provided copy to patient. RUSS contacted [facility] on [facility][Note 3] and scheduled ST for 06/13/23 @ 1400 and PT for 06/17/23 @ 0930.
[2023-06-09 17:01] VITALS: BP 123/74; PULSE 84; TEMP 98.6
--- NOTE | 2023-06-09 17:54 | NUR ---
PT WITH COMPLAINTS OF CHRONIC BACK PAINS TODAY, LIDOCAINE PATCH APPLIED TO RIGHT LOWER BACK, PRN OXYCODONE GIVEN, EFFECTIVE. PT AMBULATING WELL WITH WALKER, SBA. PT IS EXCITED TO GET TO GO HOME TOMORROW.
[2023-06-09 19:00] VITALS: BP_SYST 123
--- NOTE | 2023-06-09 21:00 | NUR ---
PT SITTING UP IN RECLINER. EXCITED ABOUT GOING HOME TOMORROW. SEE COMPLETED SHIFT ASSESSMENT. HAS YEAST INFECTION TO PANNUS & GROIN. DESENEX POWDER APPLIED. SEE MAR FOR PAIN MED GIVEN. CALL LIGHT IN REACH. CHAIR ALARM SET.
[2023-06-10 05:53] VITALS: BP 124/74; PULSE 90; TEMP 98.1
--- NOTE | 2023-06-10 06:15 | NUR ---
PT HAD UNEVENTFUL NIGHT. NO NEEDS.
[2023-06-10 06:58] VITALS: BP_SYST 124
--- NOTE | 2023-06-10 06:58 | NUR ---
Shift report received from night RN. No events reported overnight. Pt sitting up in bed. He denies the need for any pain medication at this time as he "took a pain pill in the middle of the night". Pt looking forward to DC home today. Pt denies other needs. Call light in reach. Fall precautions in place.
--- NOTE | 2023-06-10 09:25 | NUR ---
Dressing change completed to abd incision after noting serous drainage on gauze. Gauze & tegaderm replaced. Skin tears x 2 noted to R forearm - xeroform, steristrips, tegaderm applied to both. Steri strips intact to L upper arm skin tear - tegaderm replaced.
[2023-06-10] MEDS ORDERED: PROAMATINE 5MG T5 MG PO (09:47)
[2023-06-10] MEDS ORDERED: PROTONIX 40MG T40 MG PO (09:49)
--- NOTE | 2023-06-10 10:40 | NUR ---
DC Summary reviewed w/ the pt. He had no further questions. Belongings have been gathered. Valuable items denied. Pt has his cellphone & CPAP machine bagged. Pt waiting for to arrive.
--- NOTE | 2023-06-10 11:11 | NUR ---
here. Pt escorted off unit by wheelchair.
[2023-06-10] MEDS ORDERED: LASIX 40MG TABL40 MG PO (11:50)
--- NOTE | 2023-06-10 12:32 | NUR ---
Organisational Psychologist provided outpatient appointment times to business unit leader to include in discharge orders. SW contacted [facility] and faxed referral with discharge orders.
== END 2023-06-10 11:11 | disposition home or self-care (01) | DRG 948 ==
PROVIDERS: Internal Medicine; Internal Medicine Nephrology; Physician Assistant; ADMIT Physical Medicine & Rehabilitation Sports Medicine
DX: R53.81 Other malaise (principal); N17.9 Acute kidney failure, unspecified; E87.1 Hypo-osmolality and hyponatremia; R26.89 Other abnormalities of gait and mobility; N18.30 Chronic kidney disease, stage 3 unspecified; E11.42 Type 2 diabetes mellitus with diabetic polyneuropathy; E11.22 Type 2 diabetes mellitus with diabetic chronic kidney disease; K76.82 Hepatic encephalopathy; G89.29 Other chronic pain; M54.50 Low back pain, unspecified; M40.299 Other kyphosis, site unspecified; R29.6 Repeated falls; K75.81 Nonalcoholic steatohepatitis (NASH); E87.5 Hyperkalemia; E83.52 Hypercalcemia; G47.00 Insomnia, unspecified; E66.9 Obesity, unspecified; E87.6 Hypokalemia; Z68.32 Body mass index [BMI] 32.0-32.9, adult; Z86.16 Personal history of COVID-19; Z74.09 Other reduced mobility; D53.9 Nutritional anemia, unspecified; L90.5 Scar conditions and fibrosis of skin; I95.9 Hypotension, unspecified; G70.00 Myasthenia gravis without (acute) exacerbation; E83.42 Hypomagnesemia; Z91.048 Other nonmedicinal substance allergy status
CPT/HCPCS: A9270; J1815; J7030; J7512; P9016; Q3014

== ENCOUNTER 2023-06-13 14:03 | Outpatient (RCR) | payer OTHER, MEDICARE ==
[~2023-06-13 14:03] MED LIST changes: +PROAMATINE 5MG T5 MG PO
== END 2023-06-15 | disposition home or self-care (01) ==
LOC: WSST
DX: R53.81 Other malaise (principal); Z86.16 Personal history of COVID-19; N17.9 Acute kidney failure, unspecified; N18.9 Chronic kidney disease, unspecified

== ENCOUNTER 2023-07-18 13:12 | Outpatient (RCR) | payer OTHER, MEDICARE ==
[2023-07-19] MEDS ORDERED: BUTRANS10 MCG/HR TOP (10:09)
[2023-07-19] MEDS ORDERED: LASIX 40MG TABL40 MG PO (11:53)
[2023-07-19] MEDS ORDERED: NOVOLOG FLEX100 U/ML SQ (11:54)
[2023-07-19] MEDS ORDERED: ENULOSE10 GM/151 PO (11:55)
[2023-07-19] MEDS ORDERED: ATARAX 25MG25 MG/TAB PO (11:57)
[2023-07-19] MEDS ORDERED: VITAMIN B COMPL1 T16 PO (11:57)
--- NOTE | 2023-07-20 13:39 | NUR ---
Initial visit; Patient states he is doing better and thanked Hospice Team Lead for looking in on him. He would like Hospice Team Lead to keep him in her prayers for awhile. Hospice Team Lead will do so.
[2023-08-01] MEDS ORDERED: PROAMATINE 5MG T5 MG PO (16:48)
[2023-08-03] MEDS ORDERED: ALDACTONE 100M100 MG PO (19:29)
[2023-08-03] MEDS ORDERED: LACTULOSE10 GM/153 PO (19:30)
== END 2023-08-14 | disposition home or self-care (01) ==
LOC: MKS.ESL.PT
DX: R53.81 Other malaise (principal); U09.9 Post COVID-19 condition, unspecified; K76.82 Hepatic encephalopathy; N17.9 Acute kidney failure, unspecified

== ENCOUNTER 2023-08-01 08:37 | Inpatient (IN) | payer OTHER, MEDICARE ==
[~2023-08-01] VITALS: Ht 182.9 cm; Wt 121.1 kg
[~2023-08-01 08:37] MED LIST changes: +BUTRANS10 MCG/HR TOP; +VITAMIN B COMPL1 T16 PO
[2023-08-01 09:14] LABS: BASO # 0.1 K/mm3 (0.0-0.2); BASO % 0.7 % (0.0-2.0); EOS # 0.2 K/mm3 (0.0-0.7); EOS % 1.4 % (0.0-4.0); GRAN # 8.1 K/mm3 (1.4-6.5); GRAN % 73.1 % (42.2-75.2); HEMATOCRIT 38.8 % (42.0-52.0); HEMOGLOBIN 12.5 g/dl (13.5-18.0); LYMPH # 1.3 K/mm3 (1.2-3.4); LYMPH % 11.6 % (20.0-51.0); MEAN CELL VOLUME 106 fl (80.0-100.0); MEAN CORPUSCULAR HEMOGLOBIN 34 pg (27-31); MEAN CORPUSCULAR HGB CONC 32 g/dl (33.0-37.0); MEAN PLATELET VOLUME 8.9 fl (7.4-10.4); MONO # 1.4 K/mm3 (0.1-0.6); MONO % 12.7 % (1.7-9.3); PLATELET COUNT 206 K/mm3 (130-400); RED BLOOD COUNT 3.67 M/mm3 (4.20-5.60); REDCELL DISTRIBUTION WIDTH-CV 17.2 % (11.5-14.5)
[2023-08-01] MEDS ORDERED: Furosemide 40 MG/4 ML VIAL IV ONE (09:15)
[2023-08-01 09:25] LABS: ALBUMIN 2.5 gm/dL (3.4-4.8); BILIRUBIN,TOTAL 2.2 mg/dL (0.2-1.2); CALCIUM 10.4 mg/dL (8.4-10.2); CREATININE, serum 1.26 mg/dL (0.72-1.25); POTASSIUM 3.3 mmol/L (3.5-4.5)
[2023-08-01 09:31] LABS: TROPONIN-I 0.016 ng/mL (0.00-0.033)
[2023-08-01] MEDS ORDERED: Dextrose (Glucose) 15 GM (4 x 3.75 GM) Chewable TABLET PACK PO PRN (11:45)
[2023-08-01] MEDS ORDERED: Albuterol/Ipratropium 3 MG-0.5 MG/3 ML Neb Soln IH PRN (11:45)
[2023-08-01] MEDS ORDERED: Dextrose 50% Water 25 GM/50 ML SYRINGE IV PRN (11:45)
[2023-08-01] MEDS ORDERED: Glucagon 1 MG VIAL IM PRN (11:45)
[2023-08-01] MEDS ORDERED: Ondansetron 4 MG/2 ML VIAL IV PRN (11:45)
[2023-08-01 11:55] VITALS: BP 181/70; PULSE 95; TEMP 97.4
[2023-08-01] MEDS ORDERED: Insulin Lispro (HumaLOG) SQ SCH (12:00)
--- NOTE | 2023-08-01 12:11 | NUR ---
PT ADMITTED TO MEDICAL 307 FROM ED FOR PLEURAL EFFUSIONS AND HYPOXIA AT THIS TIME. PT ON 2L NC UPON ARRIVAL. DYSPNEA WITH EXERTION. PT ALERT AND ORIENTED AND ABLE TO ANSWER ADMISSION QUESTIONS BUT IS UNSURE OF MEDICATIONS; PT'S NIKHIL WILL BE ABLE TO HELP WITH MED REC WHEN SHE RETURNS THIS AFTERNOON. NO SKIN ISSUES NOTES. IV TO LEFT WRIST; FLUSHES WITHOUT ISSUE. PT OFFERS NO COMPLAINTS. CALL LIGHT IN REACH AND BED ALARM ON.
[2023-08-01 12:27] LABS: INR 1.7 (0.8-3.0)
[2023-08-01] MEDS ORDERED: Albuterol/Ipratropium 3 MG-0.5 MG/3 ML Neb Soln IH SCH (13:00)
--- NOTE | 2023-08-01 13:48 | NUR ---
Pt being taken to radiology at this time for Left side thoracentesis.
--- NOTE | 2023-08-01 15:10 | NUR ---
Pt returned from left thoracentesis at this time. nursery technician reports that they drained 1825ml from left side. Pt alert and oriented upon return. Reports feeling tired but no pain. Assisted with using urinal. Lies supine with HOB elevated.
[2023-08-01] MEDS ORDERED: Furosemide 40 MG TAB PO SCH (15:13)
[2023-08-01 16:15] VITALS: BP 146/74; PULSE 81; TEMP 97.4
[2023-08-01 16:31] LABS: PLEURAL FLUID RBC 68000 /mm3 (0-0); PLEURAL FLUID WBC 7239 /mm3
[2023-08-01 16:33] LABS: PLEURAL FLUID APPEARANCE CLOUDY; PLEURAL FLUID COLOR RED
[2023-08-01 16:46] VITALS: BP_SYST 146
[2023-08-01] MEDS ORDERED: PROAMATINE 5MG T5 MG PO (16:48)
[2023-08-01 18:54] VITALS: BP 159/76; PULSE 85; TEMP 97.5
[2023-08-01 21:00] VITALS: BP_SYST 143
[2023-08-01] MEDS ORDERED: hydrOXYzine HCl 25 MG TAB PO SCH (21:00)
[2023-08-01] MEDS ORDERED: rifAXIMin 550 MG TAB PO SCH (21:00)
[2023-08-01] MEDS ORDERED: Lactulose Oral Soln 10 GM/15 ML CUP PO SCH (21:00)
[2023-08-01] MEDS ORDERED: Oxymetazoline 0.05% Nasal Spray 30 ML BOTTLE NS PRN (21:00)
[2023-08-01 22:36] VITALS: BP 143/73; PULSE 89; TEMP 97.8
--- NOTE | 2023-08-01 23:03 | NUR ---
PT ALERT AND ORIENTED. WHEN GETTING REPORT AT START OF SHIFT PT APPEARS VERY LETHARGIC. AT BEDSIDE, CLARIFYING PT HISTORY. VSS, CURRENTLY ON 2 L NC. SHIFT ASSESSMENT COMPLETE, MEDICATED PER EMAR. PAIN RATED 6/10 AND GENERALIZED. DENIES WANTING ANYTING FOR PAIN. IV INT TO L WRIST PATENT. DNEIES FURTHER NEED AT THIS TIME. CALL LIGHT WITHIN REACH BED ALARM ENGAGED.
[2023-08-02] VITALS (12 sets, daily range): BP systolic 131–152; BP diastolic 59–71; PULSE 83–99; TEMP 97.4–98.8
[2023-08-02] MEDS ORDERED: Acetaminophen 325 MG TAB PO PRN (00:30)
--- NOTE | 2023-08-02 07:30 | NUR ---
Pt A&O upon morning shift assessment.Breathing unlabored at rest w/ O2 stat of 96 on 2L O2. Awaiting Rt sided thoracentesis. Bilateral breath sounds diminished at bases.Pt remains NPO with no c/o pain.
--- NOTE | 2023-08-02 08:29 | NUR ---
PER REPORT PT NPO. NO NPO ORDERS AT THIS TIME, BUT THORACENTESIS PLANNED FOR THE DAY. EDITH DENNIS, ASKED ABOUT NPO STATUS AND STATED THAT AN ORDER WOULD BE PUT IN
[2023-08-02] MEDS ORDERED: Lidocaine 4% Topical Patch TP SCH (09:00)
[2023-08-02] MEDS ORDERED: Cetirizine 10 MG TAB PO SCH (09:00)
[2023-08-02] MEDS ORDERED: Cholecalciferol (Vit D3) 1000 Units TAB PO SCH (09:00)
--- NOTE | 2023-08-02 09:26 | NUR ---
PT SITTING IN CHAIR UPON ENTERING. ASSESSMENT DONE. PT NPO AT THIS TIME. [facility] TRAIN RESERVATION CLERK STUDENT ASSIGNED TO PT. PT ON 1.5L NASAL CANNULA. INT TO LEFT WRIST INTACT. BILATERAL UPPER EXTREMITY ECCHYMOSIS NOTED. RIGHT LOWER EXTREMITY EDEMA +2, LEFT LOWER EXTREMITY +1. PT REPORTS BACK PAIN, LIDOCAINE PATCH ON JUL. ALL LUNG SOUNDS DIMINISHED. THORACENTESIS SITE TO LEFT UPPER BACK. PT DENIES NEEDS. CHAIR ALARM ON, CALL LIGHT IN REACH
--- NOTE | 2023-08-02 09:46 | NUR ---
Initial visit; Patient thanked Associate Civil Engineer for looking in on him and made the statement that it is always nice to pray with "Like-minded" people. 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 Jesse requested that Associate Civil Engineer keep his Martinez in her prayers. Associate Civil Engineer stated that she would keep both him and Martinez in her prayers.
--- NOTE | 2023-08-02 10:09 | NUR ---
EDITH DENNIS NOTIFIED OF 08/01 CHEST XRAY RESULTS
[2023-08-02 10:51] LABS: BASO % 0.4 % (0.0-2.0); EOS # 0.3 K/mm3 (0.0-0.7); EOS % 2.9 % (0.0-4.0); GRAN # 6.5 K/mm3 (1.4-6.5); GRAN % 72.4 % (42.2-75.2); HEMOGLOBIN 11.7 g/dl (13.5-18.0); LYMPH % 11.6 % (20.0-51.0); MEAN CELL VOLUME 105 fl (80.0-100.0); MEAN CORPUSCULAR HEMOGLOBIN 35 pg (27-31); MEAN CORPUSCULAR HGB CONC 33 g/dl (33.0-37.0); MEAN PLATELET VOLUME 8.9 fl (7.4-10.4); MONO # 1.1 K/mm3 (0.1-0.6); MONO % 12.4 % (1.7-9.3); PLATELET COUNT 176 K/mm3 (130-400); RED BLOOD COUNT 3.39 M/mm3 (4.20-5.60); REDCELL DISTRIBUTION WIDTH-CV 17.2 % (11.5-14.5)
[2023-08-02 10:59] LABS: HEMATOCRIT 35.5 % (42.0-52.0)
[2023-08-02 11:09] LABS: ALBUMIN 2.4 gm/dL (3.4-4.8); BILIRUBIN,TOTAL 1.8 mg/dL (0.2-1.2); CALCIUM 9.4 mg/dL (8.4-10.2); CREATININE, serum 1.4 mg/dL (0.72-1.25); POTASSIUM 3.6 mmol/L (3.5-4.5); TOTAL PROTEIN 7.7 gm/dL (6.2-8.1)
[2023-08-02] MEDS ORDERED: Spironolactone 25 MG TAB PO SCH (11:16)
--- NOTE | 2023-08-02 12:52 | NUR ---
SW met with patient and at bedside to discuss discharge planning. Patient drowsy but able to answer all questions. Patient and Shawnee ([phone]) live in [place], [place] with their adult son living with. Patient sees Dr. Ayala as his PCP and uses [facility] [place] [facility]. Patient reports using a FWW and CPAP at home. He reports the CPAP doesn't work correctly, advised him/ to contact DME provider to have it serviced. Patient completed DPOA document and names his and son as healthcare agents. Copy placed on patient's chart, original and copies provided to patient. also assisted to complete a DPOA document for herself. Plan is for patient to return home to [facility] when medically stable. Discharge Plan: Home
[2023-08-02] MEDS ORDERED: Lactulose Oral Soln 10 GM/15 ML CUP PO SCH (14:00)
--- NOTE | 2023-08-02 17:20 | NUR ---
PT REPORTS BACK PAIN. TYLENOL ORDERED, DUE TO PTS HISTORY HOSPITALIST NOTIFIED AND GAVE THIS NURSE A VERBAL ORDER TO DC TYLENOL. VERBAL ORDER FOR "TRAMADOL 50MG EVERY 6 HOURS NEEDED" GIVEN BY HOSPITALIST
[2023-08-02] MEDS ORDERED: traMADol 50 MG TAB PO PRN (17:30)
--- NOTE | 2023-08-02 18:08 | NUR ---
PT REPORTS BACK PAIN 11/22, PRN TRAMADOL GIVEN PER ORDER
--- NOTE | 2023-08-02 21:30 | NUR ---
Patient sitting in chair. Rates his pain at 5/10, denies need for pain meds at this time. Denies any other needs. Assessment complete. IV in left wrist flushes easily with no complicaitons. Call light and persoanl items in reach. Bed in low position and bed alarm on.
[2023-08-03] VITALS (9 sets, daily range): BP systolic 126–168; BP diastolic 55–74; PULSE 83–94; TEMP 97.6–98.9
--- NOTE | 2023-08-03 05:45 | NUR ---
Patient resting in bed. Rates pain at 8/10, prn pain meds given. Fresh water provided. No changes over night. Thora sites remain CDI. Call light and personal items in reach. Bed in low position and bed alarm on.
[2023-08-03 07:06] LABS: ALBUMIN 2.1 gm/dL (3.4-4.8); BILIRUBIN,DIRECT 0.5 mg/dL (0.0-0.5); BILIRUBIN,TOTAL 1.5 mg/dL (0.2-1.2); CALCIUM 8.7 mg/dL (8.4-10.2); CREATININE, serum 1.3 mg/dL (0.72-1.25); POTASSIUM 4.1 mmol/L (3.5-4.5)
[2023-08-03 09:16] LABS: BASO # 0.1 K/mm3 (0.0-0.2); BASO % 0.9 % (0.0-2.0); EOS # 0.3 K/mm3 (0.0-0.7); GRAN # 4.4 K/mm3 (1.4-6.5); GRAN % 64.4 % (42.2-75.2); HEMATOCRIT 31.1 % (42.0-52.0); HEMOGLOBIN 10.5 g/dl (13.5-18.0); LYMPH # 1.1 K/mm3 (1.2-3.4); LYMPH % 16.3 % (20.0-51.0); MEAN CELL VOLUME 102 fl (80.0-100.0); MEAN CORPUSCULAR HEMOGLOBIN 34 pg (27-31); MEAN CORPUSCULAR HGB CONC 34 g/dl (33.0-37.0); MEAN PLATELET VOLUME 8.7 fl (7.4-10.4); MONO # 0.9 K/mm3 (0.1-0.6); PLATELET COUNT 160 K/mm3 (130-400); RED BLOOD COUNT 3.05 M/mm3 (4.20-5.60); REDCELL DISTRIBUTION WIDTH-CV 17.1 % (11.5-14.5)
--- NOTE | 2023-08-03 10:03 | NUR ---
Agree with Student Nurses assessment of the patient. Patient A&Ox3. VSS. IV CDI. Call light within reach
[2023-08-03] MEDS ORDERED: Spironolactone 25 MG TAB PO SCH (12:00)
--- NOTE | 2023-08-03 12:44 | NUR ---
Follow-up visit; Patient said he is feeling better and hopes to go home today or soon. Weight Loss Centre Manager and Jesse prayed together for healing and for Jesse to take good care of himself when he leaves the hospital. Weight Loss Centre Manager wished him well.
--- NOTE | 2023-08-03 16:21 | NUR ---
Pt is sitting in chair with feet elevated, watching tv. Pt in a pleasant mood. pt no longer wearing O2 per OT/PT, SPO2 was 93% with no dyspnea at rest. Pt c/o no pain and no cough. bilateral upper lobes clear, bilateral breath sounds diminshed at bases. pt denies any needs, chair alarm on and call light with in reach.
[2023-08-03] MEDS ORDERED: LORazepam 2 MG/ML 1 ML VIAL IV PRN (17:30)
[2023-08-03] MEDS ORDERED: NS 50 ML IV SCH (18:27)
[2023-08-03] MEDS ORDERED: Iohexol 300 - 100 ML VIAL IV ONE (18:27)
[2023-08-03] MEDS ORDERED: ALDACTONE 100M100 MG PO (19:29)
[2023-08-03] MEDS ORDERED: LACTULOSE10 GM/153 PO (19:30)
--- NOTE | 2023-08-03 20:30 | NUR ---
Patient resting in bed with at bedside. Rates his pain at 8/10 at this time, prn pain meds given. Denies any needs at this time. Assessment complete. Patient still drowsy from ativan given earlier before CT scan. IV in left AC flushes easily with no complicaitons. Call light and personal items in reach. Bed in low position and bed alarm on.
--- NOTE | 2023-08-03 20:56 | NUR ---
Hospitalist Arlene called for pain unrelievied by dakota and will be transfering out soon. Recieved new orders for 650mg tylenol PO and 1mg IV morphine for now.
[2023-08-03] MEDS ORDERED: Morphine 4 MG/ML VIAL IV ONE (21:00)
[2023-08-03] MEDS ORDERED: Acetaminophen 325 MG TAB PO PRN (21:00)
--- NOTE | 2023-08-03 21:45 | NUR ---
Called report to TERESSA Morales at ICU Medical at this time. Patient will be going to room 7124. Patient left the unit at this time with all personal belongings. Vital signs obtained. Report given to EMS transfer, all questions answered. IV in left AC flushes easily with no complicaitons. Pain meds given proior to transfer. Patient denies any other needs or questions at this time. Patient left via EMS through ER doors.
[2023-08-04] MEDS ORDERED: Spironolactone 25 MG TAB PO SCH (09:00)
== END 2023-08-03 21:45 | disposition short-term general hospital (02) | DRG 186 ==
LOC: COL.ER 08:37 → MEDICAL 10:36
PROVIDERS: Hospitalist; Personal Emergency Response Attendant; Physician Assistant; ADMIT Internal Medicine
PROC: 0W9B3ZX Drainage of Left Pleural Cavity, Percutaneous Approach, Diagnostic (ICD-10-PCS; principal; 2023-08-01)
PROC: 0W993ZX Drainage of Right Pleural Cavity, Percutaneous Approach, Diagnostic (ICD-10-PCS; 2023-08-02)
DX: J90 Pleural effusion, not elsewhere classified (principal); J96.01 Acute respiratory failure with hypoxia; I13.0 Hypertensive heart and chronic kidney disease with heart failure and stage 1 through stage 4 chronic kidney disease, or unspecified chronic kidney disease; I50.32 Chronic diastolic (congestive) heart failure; J94.8 Other specified pleural conditions; I48.92 Unspecified atrial flutter; G70.00 Myasthenia gravis without (acute) exacerbation; E11.22 Type 2 diabetes mellitus with diabetic chronic kidney disease; E11.42 Type 2 diabetes mellitus with diabetic polyneuropathy; N18.30 Chronic kidney disease, stage 3 unspecified; G89.29 Other chronic pain; M54.9 Dorsalgia, unspecified; M40.299 Other kyphosis, site unspecified; K75.81 Nonalcoholic steatohepatitis (NASH); K72.10 Chronic hepatic failure without coma; G47.33 Obstructive sleep apnea (adult) (pediatric); R53.81 Other malaise; K74.60 Unspecified cirrhosis of liver; K26.9 Duodenal ulcer, unspecified as acute or chronic, without hemorrhage or perforation; E66.9 Obesity, unspecified; D47.2 Monoclonal gammopathy; Z20.822 Contact with and (suspected) exposure to COVID-19; Z90.49 Acquired absence of other specified parts of digestive tract; Z90.89 Acquired absence of other organs; Z88.8 Allergy status to other drugs, medicaments and biological substances; Z86.16 Personal history of COVID-19; Q05.9 Spina bifida, unspecified; Z87.19 Personal history of other diseases of the digestive system; Z23 Encounter for immunization; Z68.37 Body mass index [BMI] 37.0-37.9, adult
CPT/HCPCS: A9284; J1815; J1940; J2060; J2270; Q9967

== ENCOUNTER 2023-10-30 16:32 | Inpatient (IN) | payer OTHER, MEDICARE ==
[~2023-10-30] VITALS: Ht 180.3 cm; Wt 99.5 kg
[2023-10-30 16:58] LABS: BASO # 0.1 K/mm3 (0.0-0.2); BASO % 0.5 % (0.0-2.0); EOS # 0.1 K/mm3 (0.0-0.7); EOS % 0.5 % (0.0-4.0); GRAN # 8.6 K/mm3 (1.4-6.5); GRAN % 79.6 % (42.2-75.2); HEMATOCRIT 38.4 % (42.0-52.0); HEMOGLOBIN 13.2 g/dl (13.5-18.0); LYMPH # 1.1 K/mm3 (1.2-3.4); LYMPH % 10.3 % (20.0-51.0); MEAN CELL VOLUME 98 fl (80.0-100.0); MEAN CORPUSCULAR HEMOGLOBIN 34 pg (27-31); MEAN CORPUSCULAR HGB CONC 34 g/dl (33.0-37.0); MEAN PLATELET VOLUME 8.9 fl (7.4-10.4); MONO # 0.9 K/mm3 (0.1-0.6); MONO % 8.7 % (1.7-9.3); PLATELET COUNT 265 K/mm3 (130-400); RED BLOOD COUNT 3.94 M/mm3 (4.20-5.60); REDCELL DISTRIBUTION WIDTH-CV 15.6 % (11.5-14.5)
[2023-10-30] MEDS ORDERED: NS 1,000 ML IV SCH (17:00)
[2023-10-30 17:17] LABS: ALANINE AMINOTRANSFERASE 52 U/L (0-55); ALBUMIN 2.8 g/dL (3.4-4.8); ALKALINE PHOSPHATASE 246 U/L (40-150); ANION GAP 17 mmol/L (7-16); AST,SGOT 115 U/L (5-34); BILIRUBIN,TOTAL 1.7 mg/dL (0.2-1.2); BLOOD UREA NITROGEN 71 mg/dL (8-26); CALCIUM 11.9 mg/dL (8.4-10.2); CHLORIDE 97 mEq/L (98-107); CREATININE, serum 2.45 mg/dL (0.72-1.25); GLUCOSE 268 mg/dL (70-99); POTASSIUM 4.3 mEq/L (3.5-4.5); SODIUM 135 mEq/L (136-145)
[2023-10-30 17:25] LABS: TROPONIN-I < 0.010 ng/mL (0.00-0.033)
[2023-10-30] MEDS ORDERED: Oxymetazoline 0.05% Nasal Spray 30 ML BOTTLE NS ONE (17:45)
[2023-10-30] MEDS ORDERED: LR 1,000 ML IV SCH (18:15)
--- NOTE | 2023-10-30 18:40 | NUR ---
PT ADMITTED FROM ER FOR WEAKNESS. PT TRANSFERED HIMSELF CART TO BED, BUT WITH DIFFICULTY. PT IS AXOX2-3. PT IS ON RA. AND LANRE SENIOR WINDOWS ENGINEER BEDSIDE. PT ORIENTED TO ROOM AND CALL LIGHT GIVEN. INDWELLING EVERETT PLACED. PT PLACED IN YELLOW GOWN AND SOCKS. UA SENT DOWN.
[2023-10-30] MEDS ORDERED: PROAMATINE 5MG T5 MG PO (18:56)
[2023-10-30] MEDS ORDERED: PROTONIX 40MG T40 MG PO (18:57)
[2023-10-30] MEDS ORDERED: NEPHPLEX RX1 TAB PO (18:57)
[2023-10-30] MEDS ORDERED: Oxymetazoline 0.05% Nasal Spray 30 ML BOTTLE NS PRN (19:00)
[2023-10-30] MEDS ORDERED: hydrOXYzine HCl 25 MG TAB PO PRN (19:00)
[2023-10-30] MEDS ORDERED: VOLTAREN GEL 1%1 TU TP (19:01)
[2023-10-30] MEDS ORDERED: LIORESAL 1010 MG/TAB PO (19:03)
[2023-10-30] MEDS ORDERED: NORCO 325 MG-51 TAB PO (19:03)
[2023-10-30 19:04] LABS: ACETONE,SERUM NEGATIVE
[2023-10-30 19:04] LABS: COLLECTION METHOD CLEAN CATCH
[2023-10-30] MEDS ORDERED: ULTRAM 50MG TAB50 MG PO (19:04)
[2023-10-30] MEDS ORDERED: NOVOLOG FLEX100 U/ML SQ (19:04)
[2023-10-30 19:05] VITALS: BP 145/75; PULSE 96; TEMP 98.5
[2023-10-30] MEDS ORDERED: Insulin Lispro (HumaLOG) SQ SCH (19:05)
[2023-10-30 19:11] LABS: CALCIUM 11.4 mg/dL (8.4-10.2); CREATININE, serum 2.34 mg/dL (0.72-1.25); POTASSIUM 4.1 mEq/L (3.5-4.5)
[2023-10-30] MEDS ORDERED: traMADol 50 MG TAB PO PRN (19:15)
[2023-10-30 19:18] LABS: URINE APPEARANCE CLEAR (CLEAR/HAZY); URINE BLOOD NEGATIVE (NEGATIVE); URINE COLOR YELLOW (YELLOW); URINE GLUCOSE NEGATIVE (NEGATIVE); URINE KETONE NEGATIVE (NEGATIVE); URINE NITRATE NEGATIVE (NEGATIVE); URINE PROTEIN(semi-quant) NEGATIVE (NEGATIVE); URINE UROBILINOGEN 0.2 E.U/dL (0.2-1.0)
[2023-10-30 19:19] LABS: PHOSPHOROUS 3.6 mg/dL (2.3-4.7)
[2023-10-30] MEDS ORDERED: Dextrose 50% Water 25 GM/50 ML SYRINGE IV PRN (20:00)
[2023-10-30] MEDS ORDERED: Dextrose (Glucose) 15 GM (4 x 3.75 GM) Chewable TABLET PACK PO PRN (20:00)
[2023-10-30] MEDS ORDERED: Glucagon 1 MG VIAL IM PRN (20:00)
[2023-10-30] MEDS ORDERED: rifAXIMin 550 MG TAB PO SCH (21:00)
[2023-10-30] MEDS ORDERED: Apixaban 5 MG TABLET PO SCH (21:00)
[2023-10-30] MEDS ORDERED: traZODone 50 MG TAB PO SCH (21:00)
[2023-10-30] MEDS ORDERED: Cetirizine 10 MG TAB PO SCH (21:00)
[2023-10-30] MEDS ORDERED: Baclofen 10 MG TAB PO SCH (21:00)
[2023-10-30] MEDS ORDERED: Lactulose Oral Soln 10 GM/15 ML CUP PO SCH (21:00)
[2023-10-30 21:20] VITALS: BP_SYST 145
--- NOTE | 2023-10-30 21:20 | NUR ---
Patient resting in bed. Rates pain at 7/10, prn pain meds given. Assessment and med rec complete. IV in left hand flushes easily without complicaitons. Call light and personal items in reach. Bed in low position and bed alarm on.
[2023-10-30 21:53] LABS: PROTHROMBIN TIME 20.8 SECONDS (9.7-12.8)
[2023-10-30 23:44] VITALS: BP 117/65; PULSE 93; TEMP 97.8
[2023-10-31] VITALS (12 sets, daily range): BP systolic 116–161; BP diastolic 60–75; PULSE 76–86; TEMP 97.6–98.6
[2023-10-31 06:08] LABS: BASO % 0.4 % (0.0-2.0); EOS # 0.2 K/mm3 (0.0-0.7); EOS % 2.1 % (0.0-4.0); GRAN # 5.1 K/mm3 (1.4-6.5); GRAN % 70.1 % (42.2-75.2); HEMOGLOBIN 11.3 g/dl (13.5-18.0); LYMPH # 1.1 K/mm3 (1.2-3.4); LYMPH % 15.6 % (20.0-51.0); MEAN CELL VOLUME 97 fl (80.0-100.0); MEAN CORPUSCULAR HEMOGLOBIN 34 pg (27-31); MEAN CORPUSCULAR HGB CONC 35 g/dl (33.0-37.0); MEAN PLATELET VOLUME 8.7 fl (7.4-10.4); MONO # 0.8 K/mm3 (0.1-0.6); MONO % 11.4 % (1.7-9.3); PLATELET COUNT 181 K/mm3 (130-400); RED BLOOD COUNT 3.35 M/mm3 (4.20-5.60); REDCELL DISTRIBUTION WIDTH-CV 15.5 % (11.5-14.5)
[2023-10-31 06:12] LABS: HEMATOCRIT 32.4 % (42.0-52.0)
--- NOTE | 2023-10-31 06:20 | NUR ---
Patient resting in bed. Rates his pain at 7/10, prn pain meds given. Denies any other needs. No new events over night. Patient remains intermintently confused. Call light and personal items in reach. Bed in low position and bed alarm on.
[2023-10-31 06:28] LABS: ALBUMIN 2.5 g/dL (3.4-4.8); CALCIUM 10.6 mg/dL (8.4-10.2); CREATININE, serum 2.1 mg/dL (0.72-1.25); TOTAL PROTEIN 7.5 g/dl (6.2-8.1)
[2023-10-31] MEDS ORDERED: Insulin Lispro (HumaLOG) SQ SCH (08:00)
[2023-10-31] MEDS ORDERED: Lidocaine 4% Topical Patch TP SCH (09:00)
[2023-10-31] MEDS ORDERED: Renal Vitamin (Vit B/Vit C/Biotin) CAP PO SCH (09:00)
--- NOTE | 2023-10-31 09:53 | NUR ---
diversified crops farmworker met with patient to discuss discharge planning. Patient lives in [place] with his , Martinez, P# [phone]. [facility] at [facility], Pharmacy is [facility]. Insurance is [employer], Medicare A and B. DPOA-HC is [place]. DME is rollator walker, shower chair, FWW, cane, CPAP. Patient reports he has been independent with ADLS at home. Patient has been going to OP PT at [facility] and would like to continue those services. He reports he has been going twice a week. Patient would like to return home with his OP PT services at time of discharge. Discharge plan: Home with OP PT- [facility]
--- NOTE | 2023-10-31 10:41 | NUR ---
PATIENT RESTING IN BED UPON ENTERING ROOM. MORNING MEDICATIONS ADMINISTERED. SHIFT ASSESSMENT COMPLETED. DRESSING TO OPEN ABDOMINAL SITE CHANGED BY TRELL DELIVERER OUTSIDE RN. EVERETT CATHETER DRAINING CLEAR YELLOW URINE. IVF INFUSING. UPDATED ON PATIENT ON PLAN OF CARE. PATIENT IS ALERT AND ORIENTED X4, DOES HAVE SOME DIFFICULTY WITH WORD FINDING AT TIMES. REPORTS PAIN AT 6/10. DENIES ANY NEEDS AT THIS TIME. BED ALARM IN PLACE, CALL LIGHT WITHIN REACH. WILL CONTINUE TO MONITOR.
--- NOTE | 2023-10-31 11:34 | NUR ---
Sales Operations contacted patient's , Martinez to review discharge plan and she is in agreement with discharge home with continued outpatient PT.
[2023-10-31] MEDS ORDERED: TYLENOL 8 HR PO (15:55)
[2023-10-31] MEDS ORDERED: REMERON 15M15 MG/TA1 PO (15:58)
[2023-10-31] MEDS ORDERED: ERGOCALCIFER50000 IU PO (15:59)
[2023-10-31] MEDS ORDERED: COREG 6.256.25 MG/TA PO (15:59)
[2023-10-31] MEDS ORDERED: ALDACTONE50 MG PO (16:00)
[2023-10-31] MEDS ORDERED: ENULOSE10 GM/151 PO (16:09)
[2023-10-31] MEDS ORDERED: VISTARIL 2525 MG/CAP PO (16:16)
--- NOTE | 2023-10-31 22:10 | NUR ---
Patient resting in bed. Denies any pain at this time. Needs met. Assessment complete. IV in left hand infusing without complications. Call light and persoanl items in reach. Bed in low position and bed alarm on.
[2023-11-01] VITALS (13 sets, daily range): BP systolic 122–155; BP diastolic 65–75; PULSE 78–94; TEMP 97.5–98.4
--- NOTE | 2023-11-01 03:15 | NUR ---
When checking on patient he is very difficult to wake up and keeps closing his eyes and falling asleep. He is able to follow some simple directions but is more confused than previously. Patient was A&O x4 when shift assessment was completed around 2229 and patient is unable to answer any orientation, just keeps repeating "I can." BG 180 at this time. Systems Software Developer strengh is weaker as well as bilateral LE movement. CAT call called to ICU charge, hospitalist, house, and medical charge notified due to dramatic change in mentation and weakness. New orders recieved and completed.
[2023-11-01] MEDS ORDERED: Lactulose Oral Soln 10 GM/15 ML CUP PO ONE ×2 (03:45→05:15)
--- NOTE | 2023-11-01 04:03 | NUR ---
This RN reived CAT call from TERESSA Espinal at [phone]. supervisor rod placing, Loli, hospitalist, Jessica, and this RN arrived to bedside at the same time. Patient alert and following verbal commands upon arrival to room. Vitals and BG within normal limits. Patient answering all orientation questions with "yes I can." Able to move extremities similar to baseline activity. No facial drooping or slurring noted. Upon reviewing EMAR, patient has received three doses of lactulose with no stool output in approximatley 24 hours. Orders received for STAT head CT with lab draws to include an ammonia level. No further interventions required at this time.
[2023-11-01 04:05] LABS: BASO % 0.3 % (0.0-2.0); EOS # 0.1 K/mm3 (0.0-0.7); EOS % 1.5 % (0.0-4.0); GRAN # 5.4 K/mm3 (1.4-6.5); GRAN % 72.4 % (42.2-75.2); HEMOGLOBIN 11.3 g/dl (13.5-18.0); LYMPH # 1.1 K/mm3 (1.2-3.4); LYMPH % 14.2 % (20.0-51.0); MEAN CELL VOLUME 95 fl (80.0-100.0); MEAN CORPUSCULAR HEMOGLOBIN 33 pg (27-31); MEAN CORPUSCULAR HGB CONC 35 g/dl (33.0-37.0); MEAN PLATELET VOLUME 8.5 fl (7.4-10.4); MONO # 0.8 K/mm3 (0.1-0.6); MONO % 11.3 % (1.7-9.3); PLATELET COUNT 162 K/mm3 (130-400); RED BLOOD COUNT 3.43 M/mm3 (4.20-5.60); REDCELL DISTRIBUTION WIDTH-CV 15.6 % (11.5-14.5)
[2023-11-01 04:06] LABS: HEMATOCRIT 32.7 % (42.0-52.0)
[2023-11-01 04:17] LABS: ALBUMIN 2.4 g/dL (3.4-4.8); BILIRUBIN,TOTAL 2.3 mg/dL (0.2-1.2); CALCIUM 10.6 mg/dL (8.4-10.2); CREATININE, serum 2.2 mg/dL (0.72-1.25); POTASSIUM 4.5 mEq/L (3.5-4.5); TOTAL PROTEIN 7.5 g/dl (6.2-8.1)
--- NOTE | 2023-11-01 06:20 | NUR ---
Patient had a large BM this am after recieving an addition 60mg in total of lactulose. Patient has been recieving scheduled lactulose TID and has only had one BM on 10/31/23 during the day. Patient resting with eyes closed. Respirations even and unlabored. Call light and personal items in reach. Bed in low position and bed alarm on.
--- NOTE | 2023-11-01 11:41 | NUR ---
Patient arouses to voice and touch. Able to follow verbal commands, but requires cues at times. Did not answer orientation questions, when asked to state his name or location patient would state "I can" or "yes". Required cues to hearse driver hands, turn for repositioning, and drinking fluids. Patient wound nod head in response to cues and then follow command. Tolerating PO fluids well, did not bring cup to mouth independently. Required nurse to put straw to mouth and cues to drink. Tolerated pills well, no coughing noted, required nurse to put pill in mouth and provide drink. Refused breakfast. Large/loose bowel movement noted and pericare provided/linens changed. LR infusing per orders. Call light within reach, fall precautions in place.
--- NOTE | 2023-11-01 15:08 | NUR ---
Patient remains sleepy, continues to follow verbal commands, but does not answer questions verbally. Discussed with hospitalist and provided update to patient's . Patient had a third large/loose bowel movement. Call light within reach, fall precautions in place.
[2023-11-01] MEDS ORDERED: cefTRIAXone 1 G in Water For Injection,Sterile 10 ML IV SCH (18:00)
--- NOTE | 2023-11-01 20:15 | NUR ---
Patient resting in bed. Patient still remains very drowsy and hard to awaken. Patient is able to tell me his name with some difficulty but unable to communicate anything else. Assessment complete. Mepilex appled to sacrum and mid back. Bed bath and linen change provided. Teeth brushed. IV in right hand infusing without complications. Call light and personal items in reach. Bed in low position and bed alarm on.
[2023-11-02] VITALS (12 sets, daily range): BP systolic 121–157; BP diastolic 66–82; PULSE 74–82; TEMP 97.6–98.3
[2023-11-02] MEDS ORDERED: traZODone 50 MG TAB PO ONE (00:30)
--- NOTE | 2023-11-02 06:00 | NUR ---
Patient resting in bed with eyes closed. Respirations even and unlabored. No signs of pain or needs at this time. Patient was more alert over night than the previous night however is still pretty lethargic. Dressing to right elbow changed with non-adherant gauze and gauze wrap. Call light and personal items in reach. Bed in low position and bed alarm on.
[2023-11-02 06:50] LABS: BASO % 0.3 % (0.0-2.0); EOS # 0.2 K/mm3 (0.0-0.7); EOS % 2.8 % (0.0-4.0); GRAN % 65.2 % (42.2-75.2); HEMOGLOBIN 10.6 g/dl (13.5-18.0); LYMPH # 1.2 K/mm3 (1.2-3.4); LYMPH % 18.8 % (20.0-51.0); MEAN CELL VOLUME 97 fl (80.0-100.0); MEAN CORPUSCULAR HEMOGLOBIN 32 pg (27-31); MEAN CORPUSCULAR HGB CONC 33 g/dl (33.0-37.0); MEAN PLATELET VOLUME 8.6 fl (7.4-10.4); MONO # 0.8 K/mm3 (0.1-0.6); MONO % 12.7 % (1.7-9.3); PLATELET COUNT 153 K/mm3 (130-400); RED BLOOD COUNT 3.29 M/mm3 (4.20-5.60); REDCELL DISTRIBUTION WIDTH-CV 15.2 % (11.5-14.5)
[2023-11-02 06:52] LABS: INR 1.7 (0.8-3.0); PROTHROMBIN TIME 18.2 SECONDS (9.7-12.8)
[2023-11-02 07:28] LABS: ALBUMIN 2.2 g/dL (3.4-4.8); BILIRUBIN,TOTAL 2.2 mg/dL (0.2-1.2); CALCIUM 11.1 mg/dL (8.4-10.2); CREATININE, serum 1.83 mg/dL (0.72-1.25); POTASSIUM 4.4 mEq/L (3.5-4.5); TOTAL PROTEIN 6.9 g/dl (6.2-8.1)
--- NOTE | 2023-11-02 10:09 | NUR ---
Follow-up visit; Patient states he is doing ok and thanked Bartacker for helping him open his breakfast containers. He appears to be quite weak. Bartacker mentioned she is available for Jesse if he would like Spiritual Care and stated that She would keep him in her prayers. When she said, "God Bless you, Jesse, he responded by saying; "God is blessing me."
--- NOTE | 2023-11-02 11:06 | NUR ---
Patient mentation improved from yesterday, patient alert and oriented to self, location, and situation. Able to answer all questions and follow verbal commands. Did not require cues for taking medications, and was able to drink water and take pills independently. at bedside. Dressing to abdomen wound changed, light red drainage noted to old dressing. LR infusing per orders. Call light within reach, fall precautions in place.
--- NOTE | 2023-11-02 11:36 | NUR ---
Had a Palliative Care Meeting with pt Jesse, his - Martinez, Dr. Garrett, RUSS Hubbard, student Ana, and myself. Pt currently a Full Code. Dx: FITCH Cirrhosis. Dr Garrett reviewed current status and the option of aggressive care vs Hospice. Jesse voiced clearly that he wanted aggressive care and wanted to go to [facility]. Yesterday pt was Unresponsive to questions and unable to answer Dr. Garrett except for "yes". Today pt is oriented and alert. Pt has had several doses of Lactulose. Pt stated his greatest fear of dying "was having his mother have to suffer the loss of another child. I also do not want to leave my sons." It was discussed that he will possibly have the opportunity to go to [facility] and gain some strength. Jesse stated that is his hope especially since he is still working. Martinez reminded pt that even though he is still working, during this admission Jesse has been much weaker and unable to bounce back. Martinez stated it is always good to start talking about Hospice or how they want things to be if things don't go well with [facility]. At times pt was crying during the discussion but continued to be clear about his choice for [facility].
--- NOTE | 2023-11-02 14:45 | NUR ---
Group Leader Semiconductor Processing attended rounding/palliative care discussion with Hospitalist, RNMARIETTA Salgado, and SW student Tanya. Patient's , Martinez is at bedside. Hospitalist provided clinical update and option for aggressive care vs discussion of hospice. Hospitalist advised if patient wants to continue aggressive care, he would be recommending a referral to [facility]. Patient clearly verbalized he wanted to go to [facility] and continue aggressive care. SW spoke with patient about referral process and offered support. SW contacted Ignacio at [facility] and faxed referral.
[2023-11-02] MEDS ORDERED: Melatonin 3 MG TAB PO ONE (22:30)
--- NOTE | 2023-11-02 22:30 | NUR ---
Patient sitting in chair. Rates his pain at 6/10 at this time. Assissted patient to bathroom and back to chair. Assessment complete. Patient A&O x4 and seems to be back at his usual baseline. Dressing to right elbow changed with petroleum gauze, non-adhearant gauze, and gauze wrap. IV in left hand infusing without complications. Call light and personal items in reach. Bed in low position and chair alarm on.
[2023-11-03] VITALS (11 sets, daily range): BP systolic 117–139; BP diastolic 61–74; PULSE 74–82; TEMP 97.8–99.1
--- NOTE | 2023-11-03 07:41 | NUR ---
Bedside report received from TERESSA Espinal. Pt resting in bed with eyes closed but easily awakened. Call light within reach.
[2023-11-03] MEDS ORDERED: Thiamine 100 MG TAB PO SCH (09:00)
[2023-11-03] MEDS ORDERED: Folic Acid 1 MG TAB PO SCH (09:00)
--- NOTE | 2023-11-03 11:02 | NUR ---
Pt awake resting in chair. Shift assessment completed. Pt A&O x4. Telemetry in place. VSS. IV fluids infusing into Lt hand with no complications. Rt elbow skin tear dressing assessed and redressed. Skin tear has moderate bleeding during dressing change. Applied petroleum gauze with non-adhesive gauze. Pt tolerated well with minimal complaints of pain. EDITH Gomez notified by phone of amount of bleeding skin tear has and EDITH Gomez instructed this nurse to apply pressure bandage. Pt has no request at this time. Call light within reach.
--- NOTE | 2023-11-03 16:39 | NUR ---
Industrial Design Engineer faxed clinical updates to Ignacio who continues to review case. Ignacio is unsure [employer] will auth, however they can utilize Medicare if [employer] declines. Ignacio advised patient is barely meeting criteria at this point in time and will continue to work on processing.
[2023-11-04 01:00] VITALS: BP_SYST 123
[2023-11-04] MEDS ORDERED: Lactulose Oral Soln 10 GM/15 ML CUP PO ONE (01:15)
--- NOTE | 2023-11-04 01:28 | NUR ---
PT IS ALERT AND ORIENTED X3, AT START OF SHIFT VERY INVOLVED LOVING AT BEDSIDE, RETIRED NURSE. PT SITTING IN RELCINER COMFORTABLY, EATING MCDONALDS. VSS, SHIFT ASSESSMENT COMPLETE, ALL HS MEDS GIVEN TO INCLUDE ONES THAT HAVE RECENTLY BEEN RESUMED TO HELP PT SLEEP. PAIN RATED 6/10 GENERALIZED. LIDOCAINE PATCH REMOVED FROM BACK AND DRESSING TO COCCYX CDI. IV TO LW PATENT. DENIES FURTHER NEED AT THIS TIME, ADDITIONAL DOSE OF LACTULOSE GIVEN PER TORB FALL PRECAUTIONS IN PLACE. CALL LIGHT WITHIN REACH. PT IS AWAKE AT THIS TIME PLAYING GAMES ON HIS PHONE.
[2023-11-04 03:37] VITALS: BP 119/67; PULSE 81; TEMP 99.1
[2023-11-04 05:06] VITALS: BP_SYST 119
[2023-11-04 07:03] LABS: BASO % 0.5 % (0.0-2.0); EOS # 0.3 K/mm3 (0.0-0.7); EOS % 3.9 % (0.0-4.0); GRAN # 4.3 K/mm3 (1.4-6.5); GRAN % 67.4 % (42.2-75.2); LYMPH # 1.1 K/mm3 (1.2-3.4); LYMPH % 16.6 % (20.0-51.0); MEAN CELL VOLUME 95 fl (80.0-100.0); MEAN CORPUSCULAR HGB CONC 35 g/dl (33.0-37.0); MEAN PLATELET VOLUME 8.7 fl (7.4-10.4); MONO # 0.7 K/mm3 (0.1-0.6); MONO % 11.4 % (1.7-9.3); PLATELET COUNT 143 K/mm3 (130-400); RED BLOOD COUNT 2.98 M/mm3 (4.20-5.60)
[2023-11-04 07:07] LABS: HEMATOCRIT 28.3 % (42.0-52.0); HEMOGLOBIN 9.9 g/dl (13.5-18.0); MEAN CORPUSCULAR HEMOGLOBIN 33 pg (27-31)
[2023-11-04 07:14] VITALS: BP 119/66; PULSE 86; TEMP 99
[2023-11-04 07:21] LABS: ALBUMIN 2.1 g/dL (3.4-4.8); BILIRUBIN,TOTAL 1.3 mg/dL (0.2-1.2); CALCIUM 10.1 mg/dL (8.4-10.2); CREATININE, serum 1.55 mg/dL (0.72-1.25); POTASSIUM 4.6 mEq/L (3.5-4.5); TOTAL PROTEIN 6.3 g/dl (6.2-8.1)
[2023-11-04 09:00] VITALS: BP_SYST 119
[2023-11-04 11:21] VITALS: BP 147/42; PULSE 83; TEMP 98.1
--- NOTE | 2023-11-04 12:32 | NUR ---
PATIENT IV REMOVED, PATIENT SKIN TEAR DRESSING CDHANGED. PATIENT AWAITING HIS ARRIVAL FOR DISCHARGE INSTRUCTIONSD AND TO DRESS.
--- NOTE | 2023-11-04 12:47 | NUR ---
Salesperson Burial Needs spoke with Ignacio who reviewed yesterday's updates and stated he did not think insurance would auth patient and that he did not meet criteria at this time. RUSS updated Hospitalist who recommends SNF for patient. RUSS met with patient who is not open to this option and wants to return home. RUSS discussed HH and provided Medicare.gov list of HH options. Patient is agreeable to this and will discuss options with his , Martinez. RUSS attended rounds with the team and Hospitalist advised patient that if he returns home, he may end up hospitalized again in the near future. Patient still not open to SNF at this time. Patient will discharge home today. RUSS met again with patient and his , Martinez was on speakerphone. They selected [facility]. RUSS faxed referral and was contacted by Maki at [facility] who accepted referral. Discharge Plan; Home with [facility]
--- NOTE | 2023-11-04 12:59 | NUR ---
PATIENT AND HIS GIVEN DSICHARGE ISNTRUCTIONS AND EDUCATION AND MED CHANGES , WELL SUPPLIES FOR ST DRESSING FOR HOME. PATIENT AND HIS HAVE NO QUESTIONS AT THIS TIME. APTIANET TAKEN VIA WHEELCHAIR TO PATIENT ENTRANCE BY PCT WHERE HE LEFT IN STABLE CONDITION.
--- NOTE | 2023-11-09 13:24 | NUR ---
geothermal sheet metal worker contacted [facility] and confirmed they started services for the patient on 11/05/23.
== END 2023-11-04 13:01 | disposition home health service (06) | DRG 442 ==
LOC: COL.ER 16:32 → MEDICAL 17:58
PROVIDERS: Family Medicine; Internal Medicine; Nurse Practitioner Family; Physician Assistant; ADMIT Internal Medicine
DX: K76.82 Hepatic encephalopathy (principal); E87.20 Acidosis, unspecified; I13.0 Hypertensive heart and chronic kidney disease with heart failure and stage 1 through stage 4 chronic kidney disease, or unspecified chronic kidney disease; I48.92 Unspecified atrial flutter; I50.32 Chronic diastolic (congestive) heart failure; N17.9 Acute kidney failure, unspecified; K74.60 Unspecified cirrhosis of liver; K75.81 Nonalcoholic steatohepatitis (NASH); E11.22 Type 2 diabetes mellitus with diabetic chronic kidney disease; N18.30 Chronic kidney disease, stage 3 unspecified; G89.29 Other chronic pain; M54.9 Dorsalgia, unspecified; E11.42 Type 2 diabetes mellitus with diabetic polyneuropathy; Z20.822 Contact with and (suspected) exposure to COVID-19; K72.10 Chronic hepatic failure without coma; E83.52 Hypercalcemia; G47.30 Sleep apnea, unspecified; E87.5 Hyperkalemia; I95.1 Orthostatic hypotension; Z79.899 Other long term (current) drug therapy; Z79.01 Long term (current) use of anticoagulants; Z90.89 Acquired absence of other organs; Z90.49 Acquired absence of other specified parts of digestive tract; Z88.8 Allergy status to other drugs, medicaments and biological substances; Q05.9 Spina bifida, unspecified; Z23 Encounter for immunization
CPT/HCPCS: G0378; J0696; J1815; J7030; J7120

== ENCOUNTER 2023-11-25 10:24 | Observation (INO) | payer OTHER, MEDICARE ==
[~2023-11-25] VITALS: Ht 182.9 cm; Wt 100.4 kg
[~2023-11-25 10:24] MED LIST changes: +ALDACTONE50 MG PO; +COREG 6.256.25 MG/TA PO; +ERGOCALCIFER50000 IU PO; +NEPHPLEX RX1 TAB PO; +NORCO 325 MG-51 TAB PO; +REMERON 15M15 MG/TA1 PO; +VISTARIL 2525 MG/CAP PO; +VOLTAREN GEL 1%1 TU TP
[2023-11-25 11:01] LABS: BASO % 0.4 % (0.0-2.0); EOS % 0.4 % (0.0-4.0); GRAN % 83.8 % (42.2-75.2); HEMATOCRIT 37.2 % (42.0-52.0); HEMOGLOBIN 12.7 g/dl (13.5-18.0); LYMPH # 0.6 K/mm3 (1.2-3.4); MEAN CELL VOLUME 95 fl (80.0-100.0); MEAN CORPUSCULAR HEMOGLOBIN 33 pg (27-31); MEAN CORPUSCULAR HGB CONC 34 g/dl (33.0-37.0); MEAN PLATELET VOLUME 8.5 fl (7.4-10.4); MONO # 0.7 K/mm3 (0.1-0.6); PLATELET COUNT 196 K/mm3 (130-400); REDCELL DISTRIBUTION WIDTH-CV 15.1 % (11.5-14.5)
[2023-11-25] MEDS ORDERED: NS 250 ML IV ONE (11:15)
[2023-11-25 11:18] LABS: ALBUMIN 2.8 g/dL (3.4-4.8); BILIRUBIN,TOTAL 1.8 mg/dL (0.2-1.2); CALCIUM 11.1 mg/dL (8.4-10.2); CREATININE, serum 2.32 mg/dL (0.72-1.25); POTASSIUM 4.9 mEq/L (3.5-4.5); TOTAL PROTEIN 8.5 g/dl (6.2-8.1)
[2023-11-25 12:13] LABS: COLLECTION METHOD CLEAN CATCH
[2023-11-25 12:23] LABS: PH 5.5 (5.0-8.5); URINE APPEARANCE CLEAR (CLEAR/HAZY); URINE BLOOD NEGATIVE (NEGATIVE); URINE COLOR YELLOW (YELLOW); URINE GLUCOSE NEGATIVE (NEGATIVE); URINE KETONE NEGATIVE (NEGATIVE); URINE NITRATE NEGATIVE (NEGATIVE); URINE PROTEIN(semi-quant) NEGATIVE (NEGATIVE); URINE UROBILINOGEN 0.2 E.U/dL (0.2-1.0)
[2023-11-25] MEDS ORDERED: Ondansetron 4 MG/2 ML VIAL IV PRN (12:30)
[2023-11-25] MEDS ORDERED: Docusate Sodium 100 MG CAP PO PRN (12:30)
[2023-11-25] MEDS ORDERED: Polyethylene Glycol 3350 17 GM PDS PO PRN (12:30)
[2023-11-25 12:56] LABS: INR 1.5 (0.8-3.0); PROTHROMBIN TIME 16.2 SECONDS (9.7-12.8)
[2023-11-25 13:00] VITALS: BP_SYST 127
[2023-11-25 13:20] VITALS: BP 138/68; PULSE 80; TEMP 97.6
[2023-11-25] MEDS ORDERED: WATER FOR IRRIGATION STERILE RC ONE (14:00)
[2023-11-25] MEDS ORDERED: LACTULOSE 200 GM RC ONE (14:00)
[2023-11-25] MEDS ORDERED: Lactulose Oral Soln 10 GM/15 ML CUP PO SCH (14:00)
--- NOTE | 2023-11-25 14:00 | NUR ---
PATIENT GLUCOMETER REMOVED, AND WOUND DRESSING (HAS) REMOVED FOR MRI. AFTER A FEW MINUTES PATIENT RETURNED FROM MRI. MRI NOT PERFORMED. PATIENT STATED HE "CANT DO IT, IT HURTS LIKE THE DICKENS." THIS RN SPOKE WIHT MRI IF THERE IS ANYTHING WE CAN DO TO ELEVATE HIM SO HE ISNT LAYING FLAT AND CAUSING HIM PAIN. HOWEVER WE ARE UNALBE TO ACCOMMADATE THIS. MD AWARE.
--- NOTE | 2023-11-25 15:14 | NUR ---
PATIENT ARRIVED TO UNIT LIGHTLY SLEEPY, AWAKENS TO NAME. PAITENT ANSWERS ORIENTATION QUESTIONS APPROPRIATLY. NEURO CHECK ASSESS COMPLETED. PATIENT IS ABLE TO OBEY VERBAL COMMANDS. PATIENT SLEEPY, RESTING IN BED AT THIS TIME CALL LIGHT WITHIN REACH. FALL PREAUTIONS PLACED. VSS.
[2023-11-25 15:26] VITALS: BP 127/72; PULSE 80; TEMP 97.6
[2023-11-25] MEDS ORDERED: Insulin Lispro (HumaLOG) SQ SCH (17:00)
[2023-11-25 17:02] VITALS: BP_SYST 127
--- NOTE | 2023-11-25 19:46 | NUR ---
report received from sreedhar mejia. pt resting in bed. pt denies pain. fall precautions in place. call light in reach. all needs met at this time.
[2023-11-25 21:00] VITALS: BP_SYST 127
[2023-11-25] MEDS ORDERED: Apixaban 5 MG TABLET PO SCH (21:00)
[2023-11-25] MEDS ORDERED: rifAXIMin 550 MG TAB PO SCH (21:00)
[2023-11-25] MEDS ORDERED: Acetaminophen 325 MG TAB PO PRN (21:00)
[2023-11-25] MEDS ORDERED: oxyCODONE 5 MG TAB PO PRN (21:00)
--- NOTE | 2023-11-25 22:03 | NUR ---
shift assessment complete, see documentation. pt tolerated hs meds well. pt reporting lower back pain and right shoulder pain rated 8/10. prn oxycodone administered per orders. pt attempted to use bedpan multiple times with no bowel movement. bowel sounds audible in all quadrants. fall precautions in place. call light in reach. all needs met at this time.
[2023-11-25 22:49] VITALS: BP 143/72; PULSE 79; TEMP 98.1
--- NOTE | 2023-11-25 22:49 | NUR ---
pt reporting pain medication relieved pain. pt c/o SOB when awoken from sleep. oxygen 96% on RA when awake. updated EDITH Olivares. new order for PRN oxygen. pt has a history of sleep apnea but does not wear a CPAP. pt now on 2L NC for the night. pt reports feeling better and no more SOB. LSCTA. fall precautions in place. call light in reach. all needs met at this time.
[2023-11-26] VITALS (13 sets, daily range): BP systolic 95–143; BP diastolic 56–81; PULSE 71–86; TEMP 97.6–98.2
--- NOTE | 2023-11-26 03:06 | NUR ---
upon reviewing H&P, note said to place patient on neuro checks. no order was entered. called EDITH Olivares. new order for Q6H neuro checks placed. patient is alert and oriented x4.
[2023-11-26] MEDS ORDERED: Melatonin 3 MG TAB PO ONE (03:30)
--- NOTE | 2023-11-26 03:30 | NUR ---
pt reporting sleeping difficulty. updated EDITH Olivares. new order for one time dose 6mg Melatonin PO.
--- NOTE | 2023-11-26 05:22 | NUR ---
pt up in recliner with x2 staff assist. pt moved well but is somewhat shaky in his movements. chair alarm on. call light in reach. all needs met at this time.
[2023-11-26 06:26] LABS: BASO # 0.1 K/mm3 (0.0-0.2); BASO % 0.7 % (0.0-2.0); EOS # 0.2 K/mm3 (0.0-0.7); EOS % 2.1 % (0.0-4.0); GRAN # 4.9 K/mm3 (1.4-6.5); GRAN % 69.7 % (42.2-75.2); HEMOGLOBIN 12.1 g/dl (13.5-18.0); LYMPH # 1.2 K/mm3 (1.2-3.4); LYMPH % 16.9 % (20.0-51.0); MEAN CELL VOLUME 98 fl (80.0-100.0); MEAN CORPUSCULAR HEMOGLOBIN 33 pg (27-31); MEAN CORPUSCULAR HGB CONC 34 g/dl (33.0-37.0); MEAN PLATELET VOLUME 8.7 fl (7.4-10.4); MONO # 0.7 K/mm3 (0.1-0.6); MONO % 10.3 % (1.7-9.3); PLATELET COUNT 196 K/mm3 (130-400); RED BLOOD COUNT 3.63 M/mm3 (4.20-5.60); REDCELL DISTRIBUTION WIDTH-CV 14.7 % (11.5-14.5)
[2023-11-26 06:28] LABS: HEMATOCRIT 35.5 % (42.0-52.0)
[2023-11-26 06:46] LABS: ALBUMIN 2.6 g/dL (3.4-4.8); BILIRUBIN,TOTAL 2.1 mg/dL (0.2-1.2); CREATININE, serum 2.04 mg/dL (0.72-1.25); POTASSIUM 4.4 mEq/L (3.5-4.5)
--- NOTE | 2023-11-26 07:00 | NUR ---
PT SITTING UP IN THE CHAIR. PT IS ON RA. PT ABLE TO ANSWER ORIENTATION QUESTIONS, BUT AT TIMES SAYS INAPPROPRIATE THINGS OR ODD THINGS. PT HAS CALL LIGHT AND ISNTRUCTED TO CALL WITH ALL NEEDS. FALL PRECAUTIONS IN PLACE.
[2023-11-26] MEDS ORDERED: Glucagon 1 MG VIAL IM PRN (07:15)
[2023-11-26] MEDS ORDERED: Dextrose 50% Water 25 GM/50 ML SYRINGE IV PRN (07:15)
[2023-11-26] MEDS ORDERED: Dextrose (Glucose) 15 GM (4 x 3.75 GM) Chewable TABLET PACK PO PRN (07:15)
[2023-11-26] MEDS ORDERED: Spironolactone 25 MG TAB PO SCH (09:00)
[2023-11-26] MEDS ORDERED: Lidocaine 4% Topical Patch TP SCH (09:00)
[2023-11-26] MEDS ORDERED: Pantoprazole 40 MG in NS 10 ML IV SCH (09:00)
[2023-11-26] MEDS ORDERED: Miconazole 2% Topical Powder BOTTLE TP PRN (09:45)
[2023-11-26] MEDS ORDERED: Nystatin Powder **** subs to Miconazole Powder TOP PRN (09:45)
--- NOTE | 2023-11-26 11:08 | NUR ---
Data: Patient accepted spiritual care visit offered during Iuss Analyst rounds. Patient reviewed his life, specifically his illness and the effect it might have on his goal of working for three more years. Assessment: Patient is disappointed to be in the hospital again. Patient desires to be well enough to work for three more years. Patient is appropriately worrried about his who also has a medical condition. Plan of Care: Iuss Analyst provided therapeutic listening and prayer. Iuss Analyst attempted to contact Patient's Preservationist but had to leave a message for a call back. Iuss Analyst did not provide name or room number - just that a member of the quaker is in the hospital. Iuss Analyst will provide that information if/when Preservationist returns call. Chaplains will remain available as needed/requested while Patient is admitted to this hospital.
--- NOTE | 2023-11-26 11:20 | NUR ---
SW met with patient to complete intake assessment and review discharge planning. Patient reports he resides in the home with his Shawnee Early [phone], in [place]. PCP is Dr Ayala and currently has HH for OT/PT and nursing assistance 2x weekly. Patient reports that he uses walker and shower chair -no other DMEs reported at this time. Patient reports that he is not independent with ADLs. Patient has DPOA on file. Discharge plan : TBD
--- NOTE | 2023-11-26 11:22 | NUR ---
Data: Patient and Visitor declined spiritual care visit offered during Scale Clerk rounds. Assessment: None. Patient declined. Plan of Care: Chaplains will remain available as needed/requested while Patient is admitted to this hospital.
[2023-11-26] MEDS ORDERED: NS 1,000 ML IV SCH (12:15)
[2023-11-26] MEDS ORDERED: PAMIDRONATE IV ONE (12:30)
[2023-11-26] MEDS ORDERED: NS IV ONE (12:30)
--- NOTE | 2023-11-26 13:34 | NUR ---
Data: Follow-up from previous visit. Pastor Iraheta returned Administrative Coordinator phone call. Plan of Care: Administrative Coordinator notified Patient that Hospital Administrative Assistant Esequiel had returned call and hopes to have someone from the sabianist visit Patient soon.
--- NOTE | 2023-11-26 21:24 | NUR ---
Patient assessed at this time, see shift assessment, he ambulated to the bedside commode with 2 assist with a walker and had a large soft BM, denies pain at this time, removed his lidocaine patch on his back, still with IV infusing well on left forearm with NS at 60cc/hr and pamidronate IV, denies further needs, call light and personal items within reach, will continue to monitor.
[2023-11-27 02:03] VITALS: BP_SYST 111
[2023-11-27 03:27] VITALS: BP 106/58; PULSE 70; TEMP 97.9
--- NOTE | 2023-11-27 03:28 | NUR ---
Patient incontinent of urine at this time, pericare provided, pad changed, changed the foam dressing to his right elbow, denies further needs.
--- NOTE | 2023-11-27 05:18 | NUR ---
Called Marshall, the PA and made him aware that his IV was infiltrated, he said it's fine if we could not get an IV at this time.
[2023-11-27 05:21] VITALS: BP_SYST 106
--- NOTE | 2023-11-27 06:00 | NUR ---
Patient sustained a skin tear from the old IV site, applied non adherent dressing and coban. Also noted a skin tear on his bottom applied mepilex, will continue to monitor. Charge nurse and warehouse director were aware, will report off to dayshift.
[2023-11-27 06:32] LABS: BASO % 0.5 % (0.0-2.0); EOS # 0.2 K/mm3 (0.0-0.7); EOS % 2.6 % (0.0-4.0); GRAN # 4.3 K/mm3 (1.4-6.5); GRAN % 73.8 % (42.2-75.2); HEMOGLOBIN 11.7 g/dl (13.5-18.0); LYMPH # 0.7 K/mm3 (1.2-3.4); LYMPH % 12.6 % (20.0-51.0); MEAN CELL VOLUME 97 fl (80.0-100.0); MEAN CORPUSCULAR HEMOGLOBIN 33 pg (27-31); MEAN CORPUSCULAR HGB CONC 34 g/dl (33.0-37.0); MEAN PLATELET VOLUME 8.5 fl (7.4-10.4); MONO # 0.6 K/mm3 (0.1-0.6); MONO % 10.2 % (1.7-9.3); PLATELET COUNT 162 K/mm3 (130-400); RED BLOOD COUNT 3.54 M/mm3 (4.20-5.60); REDCELL DISTRIBUTION WIDTH-CV 14.6 % (11.5-14.5)
[2023-11-27 06:34] LABS: HEMATOCRIT 34.3 % (42.0-52.0)
[2023-11-27 06:48] LABS: ALBUMIN 2.4 g/dL (3.4-4.8); BILIRUBIN,TOTAL 2.1 mg/dL (0.2-1.2); CALCIUM 10.2 mg/dL (8.4-10.2); CREATININE, serum 1.64 mg/dL (0.72-1.25); POTASSIUM 4.4 mEq/L (3.5-4.5); TOTAL PROTEIN 7.3 g/dl (6.2-8.1)
[2023-11-27 07:15] VITALS: BP 147/72; PULSE 73; TEMP 97.7
--- NOTE | 2023-11-27 07:15 | NUR ---
PATIENT AWAKE AND ALERT, SITITNG UP IN BED. PATIENT DENIES ANY NEEDS OR COMPLAINTS AT THIS TIME. CALL LIGHT WITHIN [facility], FALL PRECAUTIONS IN PLACE.
[2023-11-27 09:00] VITALS: BP_SYST 147
--- NOTE | 2023-11-27 09:05 | NUR ---
PATIENT SUCCESSFULLY MOVED FROM ROOM 344 TO ROOM 311
[2023-11-27] MEDS ORDERED: ALDACTONE50 MG PO (09:12)
--- NOTE | 2023-11-27 10:40 | NUR ---
PATIENT GIVEN DISCHARGE INSTRUCTIONS AND EDUCATION. NO IV. PATIENT AWARE OF NEEDED FOLLOW UP APTS AND BLOOD WORK. PAITENTS ALSO AWARE. PATIENT TAKEN VIA WHEELCHAIR TO ER [facility] WHERE HE LEFT IN STABLE CONDITION WITH HIS .
--- NOTE | 2023-11-27 11:39 | NUR ---
Learning And Development Manager met with patient who is set to discharge today with continued Home Health services through [facility]. Patient advised his , Shawnee is on her way to pick him up. SW inquired about an upcoming surgery for Shawnee, as patient discussed this last admission with RUSS. There is not date yet, however patient advised they are looking in to a respite stay at a nursing facility during this time. SW followed up with patient's , Shawnee who confirmed the above. SW encouraged Shawnee to start contacting facilities to inquire about availability and costs. RUSS contated TERESSA Gambino at [facility] and faxed discharge orders.
== END 2023-11-27 10:45 | disposition home or self-care (01) ==
LOC: COL.ER 10:24 → MEDICAL 12:34 → SURG 11-26 16:00 → MEDICAL 11-27 08:35
PROVIDERS: Personal Emergency Response Attendant; ADMIT Internal Medicine
DX: G93.40 Encephalopathy, unspecified (principal); K75.81 Nonalcoholic steatohepatitis (NASH); K74.60 Unspecified cirrhosis of liver; I85.00 Esophageal varices without bleeding; N17.9 Acute kidney failure, unspecified; N18.30 Chronic kidney disease, stage 3 unspecified; E87.20 Acidosis, unspecified; E83.52 Hypercalcemia; E11.22 Type 2 diabetes mellitus with diabetic chronic kidney disease; I95.1 Orthostatic hypotension; E87.5 Hyperkalemia; I48.92 Unspecified atrial flutter; I50.30 Unspecified diastolic (congestive) heart failure; I13.0 Hypertensive heart and chronic kidney disease with heart failure and stage 1 through stage 4 chronic kidney disease, or unspecified chronic kidney disease; G47.30 Sleep apnea, unspecified; Q05.9 Spina bifida, unspecified; M42.00 Juvenile osteochondrosis of spine, site unspecified; M40.209 Unspecified kyphosis, site unspecified; Z90.49 Acquired absence of other specified parts of digestive tract; Z96.89 Presence of other specified functional implants; Z79.01 Long term (current) use of anticoagulants; Z79.899 Other long term (current) drug therapy
CPT/HCPCS: G0378; J1815; J2430; J2470; J7030; J7050

== ENCOUNTER 2023-12-25 01:29 | Inpatient (IN) | payer MEDICARE, OTHER ==
[2023-12-25] VITALS (799 sets, daily range): BP systolic 125–170; BP diastolic 56–76; PULSE 72–101; TEMP 97.6–98; O2SAT 91–100
[~2023-12-25] VITALS: Ht 177.8 cm; Wt 106.8 kg
[2023-12-25 02:04] LABS: BASO % 0.5 % (0.0-2.0); EOS # 0.1 K/mm3 (0.0-0.7); EOS % 1.7 % (0.0-4.0); GRAN # 4.8 K/mm3 (1.4-6.5); GRAN % 72.3 % (42.2-75.2); HEMOGLOBIN 11.8 g/dl (13.5-18.0); LYMPH # 0.9 K/mm3 (1.2-3.4); LYMPH % 14.1 % (20.0-51.0); MEAN CELL VOLUME 98 fl (80.0-100.0); MEAN CORPUSCULAR HEMOGLOBIN 32 pg (27-31); MEAN CORPUSCULAR HGB CONC 33 g/dl (33.0-37.0); MEAN PLATELET VOLUME 8.7 fl (7.4-10.4); MONO # 0.7 K/mm3 (0.1-0.6); MONO % 10.9 % (1.7-9.3); PLATELET COUNT 204 K/mm3 (130-400); RED BLOOD COUNT 3.66 M/mm3 (4.20-5.60); REDCELL DISTRIBUTION WIDTH-CV 15.7 % (11.5-14.5)
[2023-12-25 02:08] LABS: HEMATOCRIT 35.9 % (42.0-52.0)
[2023-12-25 02:17] LABS: ALANINE AMINOTRANSFERASE 30 U/L (0-55); ALBUMIN 2.6 g/dL (3.4-4.8); ANION GAP 17 mmol/L (7-16); AST,SGOT 69 U/L (5-34); BILIRUBIN,TOTAL 1.9 mg/dL (0.2-1.2); BLOOD UREA NITROGEN 38 mg/dL (8-26); CALCIUM 10.3 mg/dL (8.4-10.2); CHLORIDE 102 mEq/L (98-107); CREATININE, serum 1.83 mg/dL (0.72-1.25); GLUCOSE 193 mg/dL (70-99); POTASSIUM 3.9 mEq/L (3.5-4.5); SODIUM 140 mEq/L (136-145); TOTAL PROTEIN 8.2 g/dl (6.2-8.1)
[2023-12-25] MEDS ORDERED: LR 1,000 ML IV ONE ×2 (02:30→03:30)
[2023-12-25] MEDS ORDERED: DEMADEX10 MG PO ×2 (02:31→11:25)
[2023-12-25] MEDS ORDERED: GLUCOTROL XL2.5 MG PO (02:33)
[2023-12-25 02:38] LABS: TROPONIN-I < 0.010 ng/mL (0.00-0.033)
[2023-12-25 02:41] LABS: ACETONE,SERUM NEGATIVE
[2023-12-25 02:51] LABS: ALKALINE PHOSPHATASE 156 U/L (40-150)
[2023-12-25 03:02] LABS: COLLECTION METHOD CATHETER
[2023-12-25 03:44] LABS: URINE APPEARANCE Clear (CLEAR/HAZY); URINE COLOR YELLOW (YELLOW)
[2023-12-25 03:45] LABS: URINE BLOOD TRACE-INTACT (NEGATIVE); URINE GLUCOSE Negative (NEGATIVE); URINE KETONE Negative (NEGATIVE); URINE NITRATE Negative (NEGATIVE); URINE PROTEIN(semi-quant) NEGATIVE (BEGATIVE); URINE UROBILINOGEN 0.2 E.U/dL (0.2-1.0)
[2023-12-25 03:50] LABS: MUCOUS PRESENT (NOT PRESENT); URINE BACTERIA RARE /hpf (NONE SEEN); URINE CALCIUM OXALATE CRYSTAL PRESENT (NOT PRESENT); URINE RBC 0-2 /hpf (0-2); URINE WBC 0-2 /hpf (0-2)
[2023-12-25] MEDS ORDERED: NS 50 ML IV SCH (04:19)
[2023-12-25] MEDS ORDERED: Iodixanol-320 100 ML BOTTLE IV ONE (04:19)
[2023-12-25] MEDS ORDERED: Lactulose Oral Soln 10 GM/15 ML CUP PO ONE (05:00)
--- NOTE | 2023-12-25 05:50 | NUR ---
Received report from ED nurseKevin.
[2023-12-25] MEDS ORDERED: Morphine 4 MG/ML VIAL IV ONE (06:00)
[2023-12-25] MEDS ORDERED: Morphine 4 MG/ML VIAL IV PRN ×2 (06:00→06:30)
[2023-12-25] MEDS ORDERED: Insulin Lispro (HumaLOG) SQ SCH (06:00)
[2023-12-25] MEDS ORDERED: Albumin (Human) 100 ML IV SCH (06:00)
--- NOTE | 2023-12-25 06:11 | NUR ---
Patient arrives to ICU room 2 via ED stretcher. Patient transferred to ICU bed via sliding board. Patient is extremely lethargic upon arrival to unit. He opens eyes slightly upon movement to ICU bed but otherwise does not open eyes when instructed. He does not follow verbal commands. Occassionally speaks one word at a time but does not answer questions appropriately. Initial vitals within normal limits. Bro, , at bedside. Admitting hospitalist, Jeremy DIOR, at bedside.
[2023-12-25] MEDS ORDERED: Lactulose Oral Soln 10 GM/15 ML CUP PO SCH ×2 (06:45→14:00)
--- NOTE | 2023-12-25 07:20 | NUR ---
THIS NURSE RECIEVED BEDSIDE REPORT. PATIENT SEEN RESTING. BED IN LOW POSITION AND CALL LIGHT WITHIN REACH.
[2023-12-25] MEDS ORDERED: Dextrose (Glucose) 15 GM (4 x 3.75 GM) Chewable TABLET PACK PO PRN (07:30)
[2023-12-25] MEDS ORDERED: Dextrose 50% Water 25 GM/50 ML SYRINGE IV PRN (07:30)
[2023-12-25] MEDS ORDERED: Glucagon 1 MG VIAL IM PRN (07:30)
[2023-12-25] MEDS ORDERED: Lidocaine 4% Topical Patch TP SCH ×2 (09:00→12:09)
[2023-12-25] MEDS ORDERED: rifAXIMin 550 MG TAB PO SCH (09:00)
[2023-12-25] MEDS ORDERED: Renal Vitamin (Vit B/Vit C/Biotin) CAP PO SCH (09:00)
--- NOTE | 2023-12-25 10:00 | NUR ---
PATIENT PLACED ON THE EXTERNAL MALE CATHETER. PATIENT ALSO PLACED ON BEDPAN BECAUSE OF COMPLAINTS OF NEEDING TO PASS STOOL. PATIENT BECOMING MORE ORIENTED, STATING BIRTHDAY, WIFES NAME, AND HIS NAME. STILL NOT ORIENTED TO WHERE HE IS. BED IS IN LOW POSITION AND CALL LIGHT IS WITHIN REACH.
[2023-12-25] MEDS ORDERED: PROAMATINE 5MG T5 MG PO (11:33)
[2023-12-25] MEDS ORDERED: NORCO 325 MG-51 TAB PO (11:35)
[2023-12-25] MEDS ORDERED: NOVOLOG 100U100 U/M1 SQ (11:45)
[2023-12-25] MEDS ORDERED: Gabapentin 100 MG CAP PO SCH (12:10)
[2023-12-25] MEDS ORDERED: Acetaminophen 325 MG TAB PO PRN (12:15)
[2023-12-25] MEDS ORDERED: hydrOXYzine HCl 25 MG TAB PO PRN (12:30)
[2023-12-25] MEDS ORDERED: cloNIDine 0.1 MG TAB PO SCH (12:30)
[2023-12-25] MEDS ORDERED: Dicyclomine 10 MG CAP PO PRN (12:30)
[2023-12-25] MEDS ORDERED: traZODone 50 MG TAB PO PRN (12:30)
--- NOTE | 2023-12-25 12:33 | NUR ---
SW attempted to meet with patient to complete initial assessment for discharge planning. Patient still slightly confused and RNs were cleaning him up at time of visit. SW discussed case with Attending Dr. Hurtado who voiced concern for patient to return home. Patient has been admitted to this hospital multiple times over the past 5 months and has refused care home placement and returned home with HH services. Patient has then been readmitted within 2-4 weeks. SW called patient's Martinez ([phone]) to complete assessment. Patient continues to live at home with her and their son Raj. Patient has names Martinez and Raj as his DPOA. Patient continues to see Dr. Ayala at [facility] and uses their pharmacy. Patient uses a rollator walker, shower chair, FWW, cane and CPAP at home. Per 's report, patient was admitted to [facility] for 20 days and returned home with [facility] on 12/21. She reports that patient gets his medications as prescribed at home and she cannot explain the cause of his abnormal labs and need to return to hospital. SW discussed concern for patient being cared for adequately at home. stated "if it's due to an infection, that has nothing to do with home." SW acknowledged 's comment and reiterated concern for patient's multiple hospitalizations. agreeable to referral to [facility] for continued rehab. Referral faxed. Discharge plan: [facility]
--- NOTE | 2023-12-25 13:34 | NUR ---
Pt has had several large, liquid yellow/moe colored BMs. Rectal tube placed. Pt tolerated procdure well. Pericare provided.
[2023-12-25 16:53] LABS: TRICYCLIC ANTIDEPRESS URINE NEGATIVE (NEGATIVE)
[2023-12-25] MEDS ORDERED: Furosemide 40 MG TAB PO SCH (17:00)
--- NOTE | 2023-12-25 18:38 | NUR ---
PATIENT RESTING COMFORTABLY. CATHETER BAG DRAINED AND RECTAL TUBE DRAIN BAG MARKED AT 200 ML. PATIENT FINISHED HIS PUDDING CUP. PATIENT HAS HEELS AND ARMS FLOATED, SCDS IN PLACE. PATIENT'S BED IS IN LOW AND CALL LIGHT WITHIN REACH.
--- NOTE | 2023-12-25 18:40 | NUR ---
PATIENT IS RESTING IN HER BED COMFORTABLY. JUST TOOK PATIENT TO THE RESTROOM AND CHANGED THE LINENS ON HER BED. PATIENT CHANGED INTO A CLEAN GOWN. PATIENT HAS BED IN SITTING POSITION. SCDS ARE IN PLACE. BED IS IN LOW POSITION, CALL LIGHT WITHIN REACH.
--- NOTE | 2023-12-25 20:00 | NUR ---
Pt resting comfortably in bed. VSS. IV antibiotic infusing without difficulty. Nighttime medications administered without difficulty. Pt complained of wanting to urinate but not being able to. External catheter placed earlier in the day by day shift RN. External catheter visualized by this RN. Shortly after pt complaint, pt urinated 225 mL of urine and stated he felt better. Bladder scan completed after urination occurred to confirm bladder was fully emptied. Pt repositioned. Pt denies further complaints of pain or discomfort at this time.
--- NOTE | 2023-12-25 20:17 | NUR ---
DAY SHIFT RT ASKED PT IF HE'S WILLING TO WEAR CPAP AT NIGHT DURING HOSPITAL STAY PT STATES "PROBABLY NOT.".
[2023-12-25] MEDS ORDERED: Apixaban 5 MG TABLET PO SCH (21:00)
[2023-12-26] VITALS (785 sets, daily range): BP systolic 98–145; BP diastolic 48–73; PULSE 68–80; TEMP 97.5–98.4; O2SAT 63–100
[2023-12-26 04:42] LABS: BASO % 0.5 % (0.0-2.0); EOS # 0.2 K/mm3 (0.0-0.7); GRAN # 4.2 K/mm3 (1.4-6.5); GRAN % 72.2 % (42.2-75.2); HEMOGLOBIN 10.1 g/dl (13.5-18.0); LYMPH # 0.7 K/mm3 (1.2-3.4); LYMPH % 11.4 % (20.0-51.0); MEAN CELL VOLUME 98 fl (80.0-100.0); MEAN CORPUSCULAR HEMOGLOBIN 33 pg (27-31); MEAN CORPUSCULAR HGB CONC 33 g/dl (33.0-37.0); MEAN PLATELET VOLUME 8.8 fl (7.4-10.4); MONO # 0.7 K/mm3 (0.1-0.6); MONO % 11.7 % (1.7-9.3); PLATELET COUNT 161 K/mm3 (130-400); REDCELL DISTRIBUTION WIDTH-CV 15.8 % (11.5-14.5)
[2023-12-26 05:18] LABS: HEMATOCRIT 30.4 % (42.0-52.0)
[2023-12-26 05:27] LABS: CALCIUM 9.7 mg/dL (8.4-10.2); CREATININE, serum 1.63 mg/dL (0.72-1.25); POTASSIUM 3.7 mEq/L (3.5-4.5)
[2023-12-26] MEDS ORDERED: *Potassium Replacement Protocol MC SCH (06:00)
[2023-12-26] MEDS ORDERED: Potassium Chloride 100 ML IV SCH (06:00)
[2023-12-26] MEDS ORDERED: NS 250 ML IV SCH ×2 (06:15)
[2023-12-26] MEDS ORDERED: Multivitamin TAB PO SCH (09:00)
[2023-12-26] MEDS ORDERED: Lidocaine 4% Topical Patch TP SCH (09:00)
[2023-12-26] MEDS ORDERED: Spironolactone 25 MG TAB PO SCH (09:00)
--- NOTE | 2023-12-26 11:46 | NUR ---
dry kiln worker left a voicemail for [facility] regarding referral.
--- NOTE | 2023-12-26 13:39 | NUR ---
skid road worker requested PT and OT orders for this patient. RUSS secure emailed clinical updates to [facility]. Discharge plan: SNF
--- NOTE | 2023-12-26 14:58 | NUR ---
ROOM ASSIGMENT FOR FLOOR RECIEVED. CALLED REPORT TO RACHEL GANNON. PT TRANSFERED TO MEDICAL FLOOR
--- NOTE | 2023-12-26 15:25 | NUR ---
PATIENT ARRIVED TO MEDICAL UNIT AT THIS TIME. PATIENT ORIENTED TO ROOM. REACTAL TUBE IN PLACE, DRAINING WELL. PATIENT UPDATED ON PLAN OF CARE. CALL LIGHT WITHIN REACH, CHAIR ALARMS IN PLACE. PATIENT CURRENTLY ON ROOM AIR WITH NO IVF INFUSING. WILL CONTINUE TO MONITOR.
--- NOTE | 2023-12-26 16:16 | NUR ---
PATIENT WAS ATTEMPTING TO USE THE URINAL AND HIS RECTAL TUBE FELL OUT. THIS RN CALLED AND NOTIFIED DR. AVILEZ. INSTRUCTED TO LEAVE IT OUT. PATIENT FELT THE URGE TO URINATE BUT HAS NOT BEEN ABLE TO GO. DR. AVILEZ INSTRUCTED THIS RN TO OBTAIN A BLADDER SCAN AT THIS TIME.
--- NOTE | 2023-12-26 16:36 | NUR ---
PATIENT WAS ABLE TO VOID 300ML.
--- NOTE | 2023-12-26 18:56 | NUR ---
PATIENT SITTING UP IN BEDSIDE RECLINER WITH TV ON WITH NO FAMILY PRESENT WITH NO ACUTE DISTRESS NOTED. PATIENT ON ROOM AIR. ZOSYN INFUSING INTO RIGHT AC WITH NO COMPLICATIONS NOTED. BEDSIDE SHIFT REPORT COMPLETED WITH HOPE AT THIS TIME. PATIENT DENIES ANY NEEDS. RECLIER LOCKED AND ALL LIGHT WITHIN REACH. CHAIR ALARM ON.
--- NOTE | 2023-12-26 20:32 | NUR ---
PATIENT RESTING SITTING ON EDGE OF BED WITH TV OFF WITH NO FAMILY PRESENT WITH NO ACUTE DISTRESS NOTED. PATIENT ON ROOM AIR. ZOSYN INFUSION COMPLETED AND IV FLUSHED. INT TO RIGHT AC INTACT WITH NO COMPLICATIONS NOTED. ASSESSMENT AND MEDICAITON ADMINISTRATION COMPLETED AT THIS TIME. PATIENT TOLERATED WELL. PATIENT DENIES ANY NEEDS. BED IN LOW POSITION WITH WHEELS LOCKED WITH RAILS UP X3 AND CALL LIGHT WITHIN REACH. BED ALARM ON.
[2023-12-27 04:09] VITALS: BP 127/73; PULSE 75; TEMP 98
[2023-12-27 07:08] LABS: BASO # 0.1 K/mm3 (0.0-0.2); BASO % 0.7 % (0.0-2.0); EOS # 0.3 K/mm3 (0.0-0.7); EOS % 4.3 % (0.0-4.0); HEMATOCRIT 30.5 % (42.0-52.0); HEMOGLOBIN 10.4 g/dl (13.5-18.0); LYMPH % 14.1 % (20.0-51.0); MEAN CELL VOLUME 95 fl (80.0-100.0); MEAN CORPUSCULAR HEMOGLOBIN 33 pg (27-31); MEAN CORPUSCULAR HGB CONC 34 g/dl (33.0-37.0); MEAN PLATELET VOLUME 8.7 fl (7.4-10.4); MONO # 0.8 K/mm3 (0.1-0.6); MONO % 10.6 % (1.7-9.3); PLATELET COUNT 164 K/mm3 (130-400); REDCELL DISTRIBUTION WIDTH-CV 15.3 % (11.5-14.5)
[2023-12-27 07:19] LABS: CALCIUM 9.9 mg/dL (8.4-10.2)
--- NOTE | 2023-12-27 07:32 | NUR ---
Bedside report received from TERESSA Boykin. Pt resting in bed with no complaints. Call light within reach and fall precautions in place.
[2023-12-27 07:44] LABS: CREATININE, serum 1.7 mg/dL (0.72-1.25)
[2023-12-27 08:34] VITALS: BP 102/51; PULSE 75; TEMP 97.8
--- NOTE | 2023-12-27 09:45 | NUR ---
Pt awake in recliner. Shift assessment completed. VSS. INT to RAC patent flushes without complications. Pt states he has pain in lower back region rating 3/10. Lidocaine patch placed as ordered. BLE edema noted in assessment. Mepilex to coccyx intact, CDI. Mepilex to spine intact for comfort. Pt has no request at this time. Call light within reach and fall precautions in place.
--- NOTE | 2023-12-27 10:00 | NUR ---
GIO to D/C COWs protocol per Dr. Hurtado during rounds.
[2023-12-27] MEDS ORDERED: Lactulose Oral Soln 10 GM/15 ML CUP PO PRN (11:15)
--- NOTE | 2023-12-27 12:12 | NUR ---
Hospital Medicine Director contacted Arslan at [facility] and faxed clinical updates. RUSS also advised tentative discharge date is for tomorrow. Arslan advised they plan to accept. RUSS also met with patient to check in and confirm discharge plan. Patient's , Martinez was on speakerphone during interaction. Discharge Plan: [facility]
[2023-12-27 12:52] VITALS: BP 108/64; PULSE 72; TEMP 97.5
[2023-12-27 16:04] VITALS: BP 113/65; PULSE 64; TEMP 97.5
--- NOTE | 2023-12-27 19:40 | NUR ---
Patient resting in chair. Rates his pain at baseline of 5/10, denies need for pain meds at this time. Needs met. States he has not had a bowel movement yet. Assessment complete. IV in right AC flushes easily without complications. Call light and personal items in reach. Bed in low position and chair alarm on.
[2023-12-27 20:58] VITALS: BP 117/66; PULSE 69; TEMP 97.8
[2023-12-28 03:57] VITALS: BP 118/68; PULSE 76; TEMP 98.1
--- NOTE | 2023-12-28 05:50 | NUR ---
Patient resting in bed. Denies any pain when he is sleeping/ resting well. Patient had one good bowel movement overnight. Dressings changed. No other changes. Call light and personal items in reach. Bed in low position and bed alarm on.
[2023-12-28 06:46] LABS: BASO % 0.5 % (0.0-2.0); EOS # 0.4 K/mm3 (0.0-0.7); EOS % 4.9 % (0.0-4.0); GRAN # 5.4 K/mm3 (1.4-6.5); GRAN % 69.9 % (42.2-75.2); HEMOGLOBIN 10.5 g/dl (13.5-18.0); LYMPH # 1.1 K/mm3 (1.2-3.4); LYMPH % 14.4 % (20.0-51.0); MEAN CELL VOLUME 97 fl (80.0-100.0); MEAN CORPUSCULAR HEMOGLOBIN 33 pg (27-31); MEAN CORPUSCULAR HGB CONC 34 g/dl (33.0-37.0); MEAN PLATELET VOLUME 8.9 fl (7.4-10.4); MONO # 0.8 K/mm3 (0.1-0.6); PLATELET COUNT 176 K/mm3 (130-400); RED BLOOD COUNT 3.23 M/mm3 (4.20-5.60); REDCELL DISTRIBUTION WIDTH-CV 15.3 % (11.5-14.5)
[2023-12-28 06:52] LABS: HEMATOCRIT 31.3 % (42.0-52.0)
[2023-12-28 06:58] LABS: CALCIUM 10.1 mg/dL (8.4-10.2); POTASSIUM 4.2 mEq/L (3.5-4.5)
[2023-12-28 07:10] VITALS: BP 103/64; PULSE 73; TEMP 98.8
--- NOTE | 2023-12-28 07:35 | NUR ---
Bedside report received from TERESSA Espinal. Pt awake in bed ordering breakfast with no complaints. Call light within reach and fall precautions in place.
[2023-12-28] MEDS ORDERED: NEURONTIN100 MG/CAP PO (08:30)
[2023-12-28] MEDS ORDERED: Lactulose Oral Soln 10 GM/15 ML CUP PO SCH ×2 (09:00→10:00)
[2023-12-28 11:34] VITALS: BP 119/69; PULSE 73; TEMP 98.1
--- NOTE | 2023-12-28 12:10 | NUR ---
Pt awake in recliner. Shift assessment completed. Neuro check completed. VSS. INT to RAC patent with no redness, swelling, or drainage. BLE edema noted in assessment. Rt lung ambrose diminshed upon auscultation. Lt lung sounds clear throughout. Pt denies pain at this time rating 0/10. Telemetry in place. Pt has no request at this time. Call light within reach and fall precautions in place.
--- NOTE | 2023-12-28 13:27 | NUR ---
Pt discharged to [facility]. INT to Rt AC discontinued with tip intact pt tolerated well with no complaints. Telemetry discontinued. SOFTWARE QUALITY ASSURANCE ENGINEER from [facility] transporting pt to facility. Report called to TERESSA Nunes at [facility]. Questions and concerns answered accordingly.
--- NOTE | 2023-12-28 14:31 | NUR ---
Patient is cleared for discharge to [facility] today. SW met with patient to present and review IM. Patient verbalized understanding and provided signature. SW placed form in chart and provided copy to patient. Patient is agreeable to discharge to [facility] but had questions about the insurance coverage. SW facilitated a conversation between patient and [facility] Food Manager. After discussion, patient is agreeable to discharge to [facility]. Transport time set for 1330. SW provided transport time to Martinez, patient's . Discharge Plan: [facility]
== END 2023-12-28 13:28 | disposition home or self-care (01) | DRG 71 ==
LOC: COL.ER 01:29 → ICU 05:53 → MEDICAL 05:53 → ICU 12:44 → MEDICAL 12-26 15:24
PROVIDERS: Emergency Medicine; ADMIT Internal Medicine
DX: G93.40 Encephalopathy, unspecified (principal); E87.20 Acidosis, unspecified; J90 Pleural effusion, not elsewhere classified; N18.9 Chronic kidney disease, unspecified; K75.81 Nonalcoholic steatohepatitis (NASH); I83.90 Asymptomatic varicose veins of unspecified lower extremity; E11.9 Type 2 diabetes mellitus without complications; Z79.84 Long term (current) use of oral hypoglycemic drugs; G89.29 Other chronic pain; G47.33 Obstructive sleep apnea (adult) (pediatric); R33.9 Retention of urine, unspecified; G47.00 Insomnia, unspecified
CPT/HCPCS: J1815; J2543; J3480; J7050; J7120; P9047; Q9967